=== PATIENT | female | born 1980 | race Asian ===

== ENCOUNTER 2023-11-22 08:04 | Outpatient (CLI) | payer OTHER, SELFPAY ==
--- NOTE | 2023-11-22 08:15 | US_ITS ---
Patient: HERMAN BARBOZA Facility:?[facility] Patient ID:?[id number] Site Patient ID:?[id number]. Site :?1980 Study:?US-OB Pelvis TV OB<14wks-11/22/2023 9:03:08 AM Ordering Physician:Garrison October Final Report: INDICATION: Ultrasound for dates and viability. Nine week 2 day gestation. Technique: First trimester OB ultrasound. Transvaginal grayscale and color, M-mode doppler images. FINDINGS: Examination shows a single intrauterine gestation. Right ovary measures 3.5 x 2.4 x 2.4 cm. Left ovary measures 2.3 x 0.9 x 1.9 cm. EARLY GESTATION MEASUREMENTS: Cookson-rump length 2.3 cm, AGA of 9 weeks, 0 days. Mean gestational sac 3.8 cm Yolk sac: Present Heart Rate: 165 bpm. 2.2 cm heterogeneous area adjacent to the gestational sac. This is isoechoic with some tiny fluid spaces. This could be an evolving subchorionic hemorrhage. IMPRESSION: 1. Single viable IUP. 2. Measurements are consistent with clinical dates. 3. Possible evolving subchorionic hemorrhage. Dictated by Jason Mendoza MD @ 11/22/2023 3:20:32 PM Signed by:?Jason Mendoza MD @11/22/2023 3:20:32 PM (Electronic Signature)
== END 2023-11-22 08:05 | disposition home or self-care (01) ==
LOC: US 08:05
PROVIDERS: Visit Provider Physician Assistant
DX: Z34.91 Encounter for supervision of normal pregnancy, unspecified, first trimester (principal); O20.9 Hemorrhage in early pregnancy, unspecified; Z3A.09 9 weeks gestation of pregnancy
CPT/HCPCS: 76817

== ENCOUNTER 2023-11-22 09:32 | Outpatient (CLI) | payer OTHER, SELFPAY ==
[2023-11-22 15:46] LABS: Chlamydia DNA Amplified* NOT DETECTED (No Detected); GC DNA Amplified* NOT DETECTED (No Detected)
== END 2023-11-22 09:33 | disposition home or self-care (01) ==
PROVIDERS: Visit Provider Physician Assistant
DX: Z34.91 Encounter for supervision of normal pregnancy, unspecified, first trimester (principal)
CPT/HCPCS: 82565; 82570; 84156; 84450; 84460; 84520; 86592; 86703; 86704; 86706; 86762; 86787; 86803; 86850; 86900; 86901; 87086; 87340; 87491; 87591

== ENCOUNTER 2023-11-25 10:48 | Outpatient (CLI) | payer OTHER, SELFPAY | END 2023-11-25 10:49 | disposition home or self-care (01) | LOC: NFLDREF 12-15 14:02 | PROVIDERS: Visit Provider Physician Assistant | DX: Z87.59 Personal history of other complications of pregnancy, childbirth and the puerperium (principal) | CPT/HCPCS: 82570; 84156 ==

== ENCOUNTER 2024-02-10 11:59 | Outpatient (CLI) | payer SELFPAY ==
--- NOTE | 2024-02-10 12:15 | CRLHL7_ITS ---
For Patients: As a result of the Century Cures Act, medical imaging exams and procedure reports are released immediately into your electronic medical record. You may view this report before your referring provider. If you have questions, please contact your health care provider. INDICATION: Evaluate anatomy. COMPARISON: 11/22/2023 TECHNIQUE: Real time andres scale imaging of the fetus was performed as well as color Doppler analysis of the umbilical vessels. FINDINGS: Sonographic imaging demonstrates a single living intrauterine gestation. Fetus demonstrates a regular cardiac rate of 142 beats per minute. Fetus has a transverse, head maternal right. The placenta lies right anterior without evidence of placenta previa. Edge of the placenta is located 5.7 cm from the internal cervical os. Amniotic fluid volume appears normal. Single deepest vertical pocket: 4.9 cm. The cervix is closed and measures 4.2 cm in length. The composite ultrasound gestational age is calculated at 20 weeks 5 days with an estimated sonographic due date of 06/24/2024. The estimated weight is 428 grams which lies at the 85th %. The following biometric measurements were obtained: Biparietal diameter: 4.7 cm/20 weeks 1 days 24th% Head circumference: 18.3 cm/20 weeks 5 days 41st% Abdominal circumference: 17.1 cm/22 weeks 0 days 83rd% Femur length: 3.5 cm/21 weeks 1 day 58th% The HC/AC ratio measures: 1.08 range (1.06-1.25) On anatomic survey, there is a normal appearance of the cerebral ventricles, cavum septi pellucidi, cisterna magna and cerebellum. The nose, lips, and facial profile appear normal. The cervical, thoracic and lumbar spine are well visualized and appear normal. There is a normal four-chamber heart view and the left and right ventricular outflow tracts appear normal. The diaphragm and stomach appear normal. The kidneys and bladder also appear normal. There is a normal three-vessel cord and there is a margin cord insertion site located 1.8 cm from the edge of the placenta. The four extremities appear normal. IMPRESSION: Concordance of clinical and sonographic dating. No intrinsic abnormalities noted on anatomic survey. Marginal placental cord insertion located 1.8 cm from the placental edge. Dictated by Toi Hernandez MD @ 02/11/2024 7:51:32 PM (Electronically Signed)
== END 2024-02-10 12:00 | disposition home or self-care (01) ==
LOC: US 12:00
PROVIDERS: Visit Provider Advanced Practice Midwife
DX: Z34.92 Encounter for supervision of normal pregnancy, unspecified, second trimester (principal); Z3A.20 20 weeks gestation of pregnancy
CPT/HCPCS: 76805

== ENCOUNTER 2024-04-06 08:35 | Outpatient (CLI) | payer SELFPAY ==
--- OUTSIDE RECORDS SUMMARY | 2024-04-12 05:47 | XMS_ITS | Referral Summary ---
Author Organization [place] Address [address] [place] [address] Care Team Providers Care Ct Scan Technician Name Role Phone No Ref-Primary, Physician Primary Care Provider Allergies No known active allergies Medications Medication Sig Dispensed Refills Start Date End Date Status MV-Min-Fe Fum-FA-DHA ( 1 PO) Take 1 tablet by mouth daily Active acetaminophen (TYLENOL) 325 MG tabletIndications: Preeclampsia, severe, third trimester,S/P section Take 3 tablets (975 mg) by mouth every 6 hours 08/24/2021 Active ibuprofen (ADVIL/MOTRIN) 800 MG tabletIndications: Preeclampsia, severe, third trimester,S/P section Take 1 tablet (800 mg) by mouth every 6 hours as needed for moderate pain 60 tablet 1 08/24/2021 Active NIFEdipine ER OSMOTIC (ADALAT CC) 60 MG 24 hr tabletIndications: Preeclampsia, severe, third trimester,S/P section Take 1 tablet (60 mg) by mouth daily 30 tablet 1 08/25/2021 Active senna-docusate (SENOKOT-S/PERICOL ARTUR) 8.6-50 MG tabletIndications: Preeclampsia, severe, third trimester,S/P section Take 1 tablet by mouth 2 times daily as needed for constipation 15 tablet 08/24/2021 Active acetaminophen (TYLENOL) 325 MG tabletIndications: S/P section Take 1-2 tablets (325-650 mg) by mouth every 6 hours as needed for mild pain or fever 60 tablet 08/26/2021 Active Active Problems Problem Noted Date Diagnosed Date S/P section 08/21/2021 Social History Tobacco Use Types Packs/Day Years Used Date Smoking Tobacco: Never Smokeless Tobacco: Never Alcohol Use Standard Drinks/Week Comments Not Currently 0 (1 standard drink = 0.6 oz pur e alcohol) Conway Depression Scale Answer Date Recorded Conway Depression Score 8 08/24/2021 Last EPDS Self Harm Result Not on file 08/24 Adolescent Education Answer Date Record ed Getting School Help Needed Not on file 04/23 Sex and Gender Information Value Date Recorded Sex Assigned at Not on file Gender Identity Not on file Sexual Orientation Not on file Last Filed Vital Signs Vital Sign Reading Time Taken Comments Blood Pressure 148/91 08/26/2021 9:00 AM ELECTRICAL TRANSMISSION ENGINEER Pulse 100 08/26/2021 5:49 AM ELECTRICAL TRANSMISSION ENGINEER Temperature 37.2 ??C (99 ??F) 08/26/2021 1:22 AM ELECTRICAL TRANSMISSION ENGINEER Respiratory Rate 18 08/26/2021 5:49 AM ELECTRICAL TRANSMISSION ENGINEER Oxygen Saturation 98% 08/22/2021 3:11 PM ELECTRICAL TRANSMISSION ENGINEER Inhaled Oxygen Concentration - - Weight 90.3 kg (199 lb) 08/24/2021 6:40 AM ELECTRICAL TRANSMISSION ENGINEER Height - - Body Mass Index - - Plan of Treatment Not on file Procedures Procedure Name Priority Date/Time Associated Diagnosis Comments COMPREHENSIVE METABOLIC PANEL Routine 08/23/2021 6:09 AM ELECTRICAL TRANSMISSION ENGINEER HIV 1&2 ANTIBODY (EXTERNAL RESULT) Routine 01/30/2021 7:01 PM CDT from Last 3 Months or Most Recently Relevant to Health Maintenance Results * (ABNORMAL) Comprehensive metabolic panel (08/23/2021 6:09 AM ELECTRICAL TRANSMISSION ENGINEER) Sodium 140 133 - 144 mmol/L 08/23/2021 6:59 AM [facility] Potassium 4.6 3.4 - 5.3 mmol/L 08/23/2021 6:59 AM [facility] Chloride 111(H) 94 - 109 mmol/L 08/23/2021 6:59 AM [facility] Carbon Dioxide (CO2) 25 20 - 32 mmol/L 08/23/2021 6:59 AM [facility] Anion Gap 4 3 - 14 mmol/L 08/23/2021 6:59 AM [facility] Urea Nitrogen 12 7 - 30 mg/dL 08/23/2021 6:59 AM [facility] Creatinine 0.77 0.52 - 1.04 mg/dL 08/23/2021 6:59 AM [facility] Calcium 8.3(L) 8.5 - 10.1 mg/dL 08/23/2021 6:59 AM [facility] Glucose 84 70 - 99 mg/dL 08/23/2021 6:59 AM [facility] Alkaline Phosphatase 88 40 - 150 U/L 08/23/2021 6:59 AM [facility] AST 21 0 - 45 U/L 08/23/2021 6:59 AM [facility]SMISS[facility] ALT 15 0 - 50 U/L 08/23/2021 6:59 AM [facility] Protein Total 6.0(L) 6.8 - 8.8 g/dL 08/23/2021 6:59 AM [facility] Albumin 2.2(L) 3.4 - 5.0 g/dL 08/23/2021 6:59 AM [facility] Bilirubin Total 0.2 0.2 - 1.3 mg/dL 08/23/2021 6:59 AM [facility]SM[facility] GFR Estimate >90 >60 mL/min/1.7 3m2 08/23/2021 6:59 AM [facility] Comment:Effective July 022020 eGFRcr in adults is calculated using the 2020 CKD-EPI creatinine equation which includes age and gender (Chastity et al., NE, DOI: 10.1056/GKQKih4562169) Blood STRUCTURE OF RIGHT HAND / Unknown Venipuncture / Unknown 08/23/2021 6:09 AM ELECTRICAL TRANSMISSION ENGINEER 08/23/2021 6:25 AM ELECTRICAL TRANSMISSION ENGINEER Alexandria Orr MD LAB - BLOOD ORDER [facility] [address] [facility] Lab (1st floor, no room number) [place] [address], [facility] [phone] * HIV-1 Antibody (External Result) (01/30/2021 7:01 PM CDT) [facility] HIV 1&2 Antibody (External) Negative Nonreactive [facility] 01/30/2021 7:01 PM CDT Adore Nagy MD LAB - HIM GRILL ATTENDANT AL RESULT [facility] [address] [place], [place] [address] [phone] from Last 3 Months or Most Recently Relevant to Health Maintenance Advance Directives For more information, please contact: [phone] * Full Code (Latest Code Status on File) Date Activated Date Inactivated Comments 08/24/2021 8:04 AM 08/26/2021 12:36 PM All basic a nd advanced life-sustaining interventions are performed as appropriate Question Answer Comments Code status determined by: Discussion with leann nt/ legal decision maker Care Teams Ct Scan Technician Relationship Specialty Start Date End Date No Ref-Primary, Physician PCP - General 08/21/21
--- OUTSIDE RECORDS SUMMARY | 2024-04-12 05:47 | XMS_ITS | Clinical Summary ---
[facility] Organization [facility] Address [address] [address] Care Team Providers Care Livery Car Driver Name Role Phone Needs Pcp, Assignment Primary Care Provider [phone] Source Comments You are receiving this document as you are listed as the primary care provider,follow-up provider, or the patient has been referred to you for consultation.This is in compliance with the Medicare and[facility] EHR Incentive Program,which states Providers who transition their patient to another setting of careor provider of care or refers their patient to another provider of care shouldprovide summary care record for each transition of care or referral. [facility] Allergies No known active allergies Medications Medication Sig Dispensed Refills Start Date End Date Status sertraline (ZOLOFT) 50 MG tabletIndications:P ostpartum depression Take 1/2 tablet (25 mg) daily for the first week then increase to a full tablet (50 mg) daily. 90 Tablet 3 12/11/2021 Active Additional Information Patient not taking.Reported on 10/21/2022 cyclobenzaprine (FLEXERIL) 10 MG tabletIndications:A cute midline low back pain without sciatica,Neck pain Take 0.5-1 Tablets (5-10 mg) by mouth three times a day as needed for Muscle Spasms. 20 Tablet 10/21/2022 Active Active Problems Problem Noted Date Diagnosed Date Lumbar pain 11/04/2022 Neck pain 11/04/2022 depression 12/26/2021 Class 1 obesity due to exces s calories with body mass index (BMI) of 32.0 to 32.9 in adult 10/08/2021 S/P section 09/17/2021 Pre-eclampsia in third trimester 08/18/2021 Breech presentation, no version 08/18/2021 Excessive weight gain affecting 2021 Abnormal cervical Papanicolaou smear 10/24/2018 Overview (10/24/2018): 2017: ASCUS/HPV neg 2018: NIL/HPV neg. Not due until 2020. 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 The presence of HbE causes few abnormalities other than microcytosis, target cells, and hypochromia when present in a heterozygous or homozygous state. Plan to check ferritin before recommending iron if anemic. Advanced maternal age, primi , antepartum 01/30/2021 10/08/2021 Antepartum multigravida of a dvanced maternal age 0701/29/2021 01/30/2021 Immunizations Name Administration Dates Next Due Flu Vac Preserv Free (3+yrs) 05/15/2009 IPV (Polio) 12/14/1993,02/24/1993,09/17/1992 MMR 10/24/1992 Td (7+ yrs) 05/13/2004,12/14/1993,02/14/1993 ,10/24/1992 Tdap 07/10/2010 Family History Medical History Relation Name Comments Cancer Father Diabetes Mother Relation Name Status Comments Father Mother Alive Brother Alive Maternal Grandfather Maternal Grandmother Paternal Grandfather Paternal Grandmother Sister Alive Social History Tobacco Use Types Packs/Day Years Used Date Smoking Tobacco: Never Smokeless Tobacco: Never Alcohol Use Standard Drinks/Week Comments Not Currently 0 (1 standard drink = 0.6 oz pur e alcohol) Socially Depression Answer Date Recor ded Last EPDS Total Score 5 12/25/2021 Last EPDS Self Harm Result 0-->never 12/25 Sex and Gender Information Value Date Recorded Sex Assigned at Not on file Gender Identity Not on file Sexual Orientation Not on file Last Filed Vital Signs Vital Sign Reading Time Taken Comments Blood Pressure 119/80 10/21/2022 1:46 PM CDT Pulse 94 10/21/2022 1:46 PM CDT Temperature - - Respiratory Rate - - Oxygen Saturation - - Inhaled Oxygen Concentration - - Weight 85.7 kg (189 lb) 10/21/2022 1:46 PM CDT Height 158 cm (5' 2.21) 10/24/2018 8:33 AM CDT Body Mass Index 34.34 10/24/2018 8:33 AM CDT Plan of Treatment Health Maintenance Due Date Last Done Comments Cervical Cancer Screening Due 1982 MTM Covered 1982 Mammogram 1982 HepB (1) 2001 DTaP/Tdap/Td (5 - Tdap) 07/10/2020 07/10/20 10, 05/13/2004, 12/14/1993, Additional history exists Adult Preventive Visit 10/24/2020 10/24/2018 COVID-19 Vaccine ( season) 2024 Influenza (#1) 2024 05/15/2009 Zoster/Shingles (1 of 2) 01/14/2032 IPV (Polio) Completed 12/14/1993, 01/30, 09/17/1992 HIV Screening (Preventive Services) Completed 01/30/2021 Hep C Screening (Preventive Services) Completed 01/30/2021 HPV Vaccine Aged Out No longer eligi ble based on patient's age to complete this topic HepA Aged Out No longer eligi ble based on patient's age to complete this topic Hib Aged Out No longer eligi ble based on patient's age to complete this topic MCV4 Aged Out No longer eligi ble based on patient's age to complete this topic Pneumococcal Aged Out No longer eligi ble based on patient's age to complete this topic Procedures Procedure Name Priority Date/Time Associated Diagnosis Comments HIV 1/2 AG/AB 4TH GEN Routine 01/30/2021 11:42 AM CDT Advanced maternal age, primigravida, antepartum Screening examination for venereal disease HEPATITIS C ANTIBODY, WITH REFLEX Routine 01/30/2021 11:42 AM CDT Advanced maternal age, primigravida, antepartum Special screening examination for viral disease from Last 3 Months or Most Recently Relevant to Health Maintenance Results * HIV 1/2 Ag/Ab 4th Generation (01/30/2021 11:42 AM CDT) HIV 1/2 Antigen/Antib raphael (4th generation) Negative (Non Reactive) Negative (Non Reactive) 01/30/2021 4:28 PM CDT [facility] Comment:HIV-1 p24 Antigen an d HIV-1/HIV-2 Antibody not detected Blood Venipuncture / Unknown 01/30/2021 11:42 AM CDT 01/30/2021 11:42 AM CDT Priti Arzola APRN, CNM LAB_1 Performing Organization Address [facility] de Phone Number [facility] [address] * HEPATITIS C ANTIBODY, WITH REFLEX (01/30/2021 11:42 AM CDT) Hepatitis C Antibody Negative (Non Reactive) Negative (Non Reactive) 01/30/2021 4:28 PM CDT [facility] Comment:Antibodies to HCV no t detected. Does not exclude the possiblity of exposure to HCV. Blood Venipuncture / Unknown 01/30/2021 11:42 AM CDT 01/30/2021 11:42 AM CDT Priti Arzola APRN, CNM LAB_1 Performing Organization Address [facility] Co de Phone Number [facility] [address] from Last 3 Months or Most Recently Relevant to Health Maintenance Care Teams Livery Car Driver Relationship Specialty Start Date End Date Needs Pcp, [place] [address] PCP - General 07/27/21
--- OUTSIDE RECORDS SUMMARY | 2024-04-12 05:47 | XMS_ITS | Encounter Summary ---
Author Organization [facility] Address [address] [place] [address] Care Team Providers Care Wheel Alignment Technician Name Role Phone No Ref-Primary, Physician Primary Care Provider Encounter Details Date Type Department Care Team (Late st Contact Info) Description 08/18/[address] [facility] [address] [place] [id number] Adore Nagy MD [address] [place] [id number] Pre-operative laboratory examination (Primary Dx) Social History Tobacco Use Types Packs/Day Years Used Date Smoking Tobacco: Never Smokeless Tobacco: Never Alcohol Use Standard Drinks/Week Comments Not Currently 0 (1 standard drink = 0.6 oz pur e alcohol) Comments Yes Sex and Gender Information Value Date Recorded Sex Assigned at Not on file Gender Identity Not on file Sexual Orientation Not on file COVID-19 Exposure Response Date Recorded In the last month, have you been in contact with someone who was confirmed or suspected to have Coronavirus / COVID-19? No / Unsure 08/20/2021 9:02 AM PLASTIC SURGERY SPECIALIST documented as of this encounter Plan of Treatment Not on file documented as of this encounter Results * Treponema Abs w Reflex to RPR and Titer (08/20/2021 9:19 AM PLASTIC SURGERY SPECIALIST) Treponema Antibody Total Nonreactive Nonreactive 08/20/2021 2:36 PM PLASTIC SURGERY SPECIALIST SPECIALTY CORE/PROT/EN DO Blood STRUCTURE OF RIGHT UPPER LIMB / Unknown Venipuncture / Unknown 08/20/2021 9:19 AM PLASTIC SURGERY SPECIALIST 08/20/2021 9:20 AM PLASTIC SURGERY SPECIALIST Adore Nagy MD LAB - BLOOD [facility] SPECIAL[facility] CORE/PROT/ENDO [facility] Specialty Core/Prot/Endo [address] [facility] [address] [facility], Room [address] [phone] * Hemoglobin (08/20/2021 9:19 AM PLASTIC SURGERY SPECIALIST) Hemoglobin 12.4 11.7 - 15.7 g/dL 08/20/2021 9:30 AM PLASTIC SURGERY SPECIALIST LABORATORY Blood STRUCTURE OF RIGHT UPPER LIMB / Unknown Venipuncture / Unknown 08/20/2021 9:19 AM PLASTIC SURGERY SPECIALIST 08/20/2021 9:22 AM PLASTIC SURGERY SPECIALIST Adore Nagy MD LAB - BLOOD [facility] Lab [address] Lab (1st floor, no room number) [place] [address], [facility] [phone] documented in this encounter Visit Diagnoses Diagnosis Pre-operative laboratory examination- Primary Pre-procedural laboratory examination documented in this encounter Care Teams Wheel Alignment Technician Relationship Specialty Start Date End Date No Ref-Primary, Physician PCP - General 08/21/21 documented as of this encounter
--- OUTSIDE RECORDS SUMMARY | 2024-04-12 05:47 | XMS_ITS | Clinical Summary ---
Author Organization [facility] Address [address] [place] [address] Care Team Providers Care Centerless Grinder Set Up Operator Name Role Phone No Ref-Primary, Physician Primary [...] drink = 0.6 oz pur e alcohol) [place] Depression Scale Answer Date Recorded [place] Depression Score 8 08/24/2021 Last EPDS Self [...] Comments Blood Pressure 148/91 08/26/2021 9:00 AM DOORPERSON OR LUGGAGE PORTER Pulse 100 08/26/2021 5:49 AM DOORPERSON OR LUGGAGE PORTER Temperature 37.2 ??C (99 ??F) 08/26/2021 1:22 AM DOORPERSON OR LUGGAGE PORTER Respiratory Rate 18 08/26/2021 5:49 AM DOORPERSON OR LUGGAGE PORTER Oxygen Saturation 98% 08/22/2021 3:11 PM DOORPERSON OR LUGGAGE PORTER Inhaled Oxygen Concentration - - Weight 90.3 kg (199 lb) 08/24/2021 6:40 AM DOORPERSON OR LUGGAGE PORTER Height - - Body Mass Index - - Plan of Treatment Health Maintenance Due Date Last Done Comments ADVANCE CARE PLANNING 1982 ANNUAL REVIEW OF HM ORDERS 1982 MAMMO SCREENING 1982 HEPATITIS C SCREENING 01/14/2000 HEPATITIS B IMMUNIZATION (1 of 3 - 19+ 3-dose series) 2001 PAP 2003 YEARLY PREVENTIVE VISIT 10/25/2019 10/24/2018 DTAP/TDAP/TD IMMUNIZATION (2 - Td or Tdap) 07/10/2020 07/10/2010 LIPID 2022 PHQ-2 (once per calendar year) 2023 COVID-19 Vaccine (1 - 2022-2 4 season) 2024 INFLUENZA VACCINE (#1) 2024 05/15/2009 GLUCOSE 08/23/2024 08/23/2021 HIV SCREENING Completed 01/30/2021 HPV IMMUNIZATION Aged Out No longer e ligible based on patient's age to complete this topic MENINGITIS IMMUNIZATION Aged Out No l onger eligible based on patient's age to complete this topic Pneumococcal Vaccine: Pediat rics (0 to 5 Years) and At-Risk Patients (6 to 64 Years) Aged Out No longer eligi ble based on patient's age to complete this topic RSV MONOCLONAL ANTIBODY Aged Out No l onger eligible based on patient's age to complete this topic Procedures Procedure Name Priority Date/Time Associated Diagnosis Comments COMPREHENSIVE METABOLIC PANEL Routine 08/23/2021 6:09 AM DOORPERSON OR LUGGAGE PORTER HIV 1&2 ANTIBODY (EXTERNAL RESULT) Routine 01/30/2021 7:01 PM CDT from Last 3 Months or Most Recently Relevant to Health Maintenance Results * (ABNORMAL) Comprehensive metabolic panel (08/23/2021 6:09 AM DOORPERSON OR LUGGAGE PORTER) Sodium 140 133 - 144 mmol/L 08/23/2021 6:59 AM [facility] Potassium 4.6 3.4 - 5.3 mmol/L 08/23/2021 6:59 AM [facility] Chloride 111(H) 94 - 109 mmol/L 08/23/2021 6:59 AM [facility] Carbon Dioxide (CO2) 25 20 - 32 mmol/L 08/23/2021 6:59 AM [facility] Anion Gap 4 3 - 14 mmol/L 08/23/2021 6:59 AM [facility] Urea Nitrogen 12 7 - 30 mg/dL 08/23/2021 6:59 AM [facility] Creatinine 0.77 0.52 - 1.04 mg/dL 08/23/2021 6:59 AM [facility] Calcium 8.3(L) 8.5 - 10.1 mg/dL 08/23/2021 6:59 AM [facility] Glucose 84 70 - 99 mg/dL 08/23/2021 6:59 AM [facility] Alkaline Phosphatase 88 40 - 150 U/L 08/23/2021 6:59 AM [facility] AST 21 0 - 45 U/L 08/23/2021 6:59 AM [facility] ALT 15 0 - 50 U/L 08/23/2021 6:59 AM [facility] Protein Total 6.0(L) 6.8 - 8.8 g/dL 08/23/2021 6:59 AM [facility] Albumin 2.2(L) 3.4 - 5.0 g/dL 08/23/2021 6:59 AM [facility] Bilirubin Total 0.2 0.2 - 1.3 mg/dL 08/23/2021 6:59 AM [facility] GFR Estimate >90 >60 mL/min/1.7 3m2 08/23/2021 6:59 AM [facility] OR [facility] Comment:Effective July 022020 eGFRcr in adults is calculated using the 2020 CKD-EPI creatinine equation which includes age and gender (Chastity et al., NEJ, DOI: 10.1056/UMDRph9842429) Blood STRUCTURE OF RIGHT HAND / Unknown Venipuncture / Unknown 08/23/2021 6:09 AM DOORPERSON OR LUGGAGE PORTER 08/23/2021 6:25 AM DOORPERSON OR LUGGAGE PORTER Alexandria Orr MD LAB - BLOOD [facility] Lab [address] Lab (1st floor, no room number) [place] [address], [facility] [phone] * HIV-1 Antibody (External Result) (01/30/2021 7:01 PM CDT) HIV 1&2 Antibody (External) Negative Nonreactive [facility] 01/30/2021 7:01 PM CDT Adore Nagy MD LAB - HIM LEAF TIER AL RESULT [facility] [address] [place], [place] [address] [phone] from Last 3 Months or Most Recently Relevant to Health Maintenance Advance Directives For more information, please contact: [phone] * Full Code (Latest Code Status on File) Date Activated Date Inactivated Comments 08/24/2021 8:04 AM 08/26/2021 12:36 PM All basic a nd advanced life-sustaining interventions are performed as appropriate Question Answer Comments Code status determined by: Discussion with patie nt/ legal decision maker Care Teams Centerless Grinder Set Up Operator Relationship Specialty Start Date End Date No Ref-Primary, Physician PCP - General 08/21/21
== END 2024-04-06 08:36 | disposition home or self-care (01) ==
LOC: NFLDREF 04-12 05:45
PROVIDERS: Visit Provider Advanced Practice Midwife
DX: Z34.93 Encounter for supervision of normal pregnancy, unspecified, third trimester (principal)
CPT/HCPCS: 86592

== ENCOUNTER 2024-04-16 02:54 | Outpatient (CLI) | payer OTHER, SELFPAY ==
--- OUTSIDE RECORDS SUMMARY | 2024-04-16 02:57 | XMS_ITS | Referral Summary ---
Author Organization [facility] Address [address] [place] [address] Care Team Providers Care Audio Visual Design Engineer Name Role Phone No Ref-Primary, Physician Primary [...] drink = 0.6 oz pur e alcohol) [place] Depression Scale Answer Date Recorded [place] Depression Score 8 08/24/2021 Last EPDS Self [...] Comments Blood Pressure 148/91 08/26/2021 9:00 AM QUILLER TENDER Pulse 100 08/26/2021 5:49 AM QUILLER TENDER Temperature 37.2 ??C (99 ??F) 08/26/2021 1:22 AM QUILLER TENDER Respiratory Rate 18 08/26/2021 5:49 AM QUILLER TENDER Oxygen Saturation 98% 08/22/2021 3:11 PM QUILLER TENDER Inhaled Oxygen Concentration - - Weight 90.3 kg (199 lb) 08/24/2021 6:40 AM QUILLER TENDER Height - - Body Mass Index - - Plan of Treatment Not on file Procedures Procedure Name Priority Date/Time Associated Diagnosis Comments COMPREHENSIVE METABOLIC PANEL Routine 08/23/2021 6:09 AM QUILLER TENDER HIV 1&2 ANTIBODY (EXTERNAL RESULT) Routine 01/30/2021 7:01 PM CDT from Last 3 Months or Most Recently Relevant to Health Maintenance Results * (ABNORMAL) Comprehensive metabolic panel (08/23/2021 6:09 AM QUILLER TENDER) Sodium 140 133 - 144 mmol/L 08/23/2021 6:59 AM [facility] Potassium 4.6 3.4 - 5.3 mmol/L 08/23/2021 6:59 AM [facility] Chloride 111(H) 94 - 109 mmol/L 08/23/2021 6:59 AM [facility] Carbon Dioxide (CO2) 25 20 - 32 mmol/L 08/23/2021 6:59 AM [facility] Anion Gap 4 3 - 14 mmol/L 08/23/2021 6:59 AM [facility] Urea Nitrogen 12 7 - 30 mg/dL 08/23/2021 6:59 AM [facility] Creatinine 0.77 0.52 - 1.04 mg/dL 08/23/2021 6:59 AM [facility] Calcium 8.3(L) 8.5 - 10.1 mg/dL 08/23/2021 6:59 AM [facility] Glucose 84 70 - 99 mg/dL 08/23/2021 6:59 AM [facility] Alkaline Phosphatase 88 40 - 150 U/L 08/23/2021 6:59 AM [facility] AST 21 0 - 45 U/L 08/23/2021 6:59 AM [facility] ALT 15 0 - 50 U/L 08/23/2021 6:59 AM [facility] Protein Total 6.0(L) 6.8 - 8.8 g/dL 08/23/2021 6:59 AM [facility] Albumin 2.2(L) 3.4 - 5.0 g/dL 08/23/2021 6:59 AM [facility] Bilirubin Total 0.2 0.2 - 1.3 mg/dL 08/23/2021 6:59 AM [facility] GFR Estimate >90 >60 mL/min/1.7 3m2 08/23/2021 6:59 AM [facility] Comment:Effective July 022020 eGFRcr in adults is calculated using the 2020 CKD-EPI creatinine equation which includes age and gender (Chastity et al., NE, DOI: 10.1056/EUUBsj2235727) Blood STRUCTURE OF RIGHT HAND / Unknown Venipuncture / Unknown 08/23/2021 6:09 AM QUILLER TENDER 08/23/2021 6:25 AM QUILLER TENDER Alexandria Orr MD LAB - BLOOD ORDER [facility] Acute Care Lab [address] Lab (1st floor, no room number) [place] [address], [facility] [phone] * HIV-1 Antibody (External Result) (01/30/2021 7:01 PM CDT) [facility] HIV 1&2 Antibody (External) Negative Nonreactive [facility] 01/30/2021 7:01 PM CDT Adore Nagy MD LAB - HIM POLITICAL CONSULTANT AL RESULT [facility] [address] [employer] [place], [place] [address] [phone] from Last 3 Months or Most Recently Relevant to Health Maintenance Advance Directives For more information, please contact: [phone] * Full Code (Latest Code Status on File) Date Activated Date Inactivated Comments 08/24/2021 8:04 AM 08/26/2021 12:36 PM All basic a nd advanced life-sustaining interventions are performed as appropriate Question Answer Comments Code status determined by: Discussion with leann nt/ legal decision maker Care Teams Audio Visual Design Engineer Relationship Specialty Start Date End Date No Ref-Primary, Physician PCP - General 08/21/21
--- OUTSIDE RECORDS SUMMARY | 2024-04-16 02:57 | XMS_ITS | Clinical Summary ---
Author Organization [facility] Address [address] [place] [address] Care Team Providers Care Dust Collector Name Role Phone No Ref-Primary, Physician Primary [...] drink = 0.6 oz pur e alcohol) [place] Depression Scale Answer Date Recorded [place] Depression Score 8 08/24/2021 Last EPDS Self [...] Comments Blood Pressure 148/91 08/26/2021 9:00 AM MINK FARMER Pulse 100 08/26/2021 5:49 AM MINK FARMER Temperature 37.2 ??C (99 ??F) 08/26/2021 1:22 AM MINK FARMER Respiratory Rate 18 08/26/2021 5:49 AM MINK FARMER Oxygen Saturation 98% 08/22/2021 3:11 PM MINK FARMER Inhaled Oxygen Concentration - - Weight 90.3 kg (199 lb) 08/24/2021 6:40 AM MINK FARMER Height - - Body Mass Index - [...] COMPREHENSIVE METABOLIC PANEL Routine 08/23/2021 6:09 AM MINK FARMER HIV 1&2 ANTIBODY (EXTERNAL RESULT) Routine 01/30/2021 7:01 PM CDT from Last 3 Months or Most Recently Relevant to Health Maintenance Results * (ABNORMAL) Comprehensive metabolic panel (08/23/2021 6:09 AM MINK FARMER) Sodium 140 133 - 144 mmol/L 08/23/2021 6:59 AM [facility] Potassium 4.6 3.4 - 5.3 mmol/L 08/23/2021 6:59 AM [facility] Chloride 111(H) 94 - 109 mmol/L 08/23/2021 6:59 AM [facility] Carbon Dioxide (CO2) 25 20 - 32 mmol/L 08/23/2021 6:59 AM [facility] Anion Gap 4 3 - 14 mmol/L 08/23/2021 6:59 AM [facility] Urea Nitrogen 12 7 - 30 mg/dL 08/23/2021 6:59 AM [facility] Creatinine 0.77 0.52 - 1.04 mg/dL 08/23/2021 6:59 AM [facility] Calcium 8.3(L) 8.5 - 10.1 mg/dL 08/23/2021 6:59 AM [facility] Glucose 84 70 - 99 mg/dL 08/23/2021 6:59 AM [facility] Alkaline Phosphatase 88 40 - 150 U/L 08/23/2021 6:59 AM [facility] AST 21 0 - 45 U/L 08/23/2021 6:59 AM [facility] ALT 15 0 - 50 U/L 08/23/2021 6:59 AM [facility] Protein Total 6.0(L) 6.8 - 8.8 g/dL 08/23/2021 6:59 AM [facility] Albumin 2.2(L) 3.4 - 5.0 g/dL 08/23/2021 6:59 AM [facility] Bilirubin Total 0.2 0.2 - 1.3 mg/dL 08/23/2021 6:59 AM [facility] GFR Estimate >90 >60 mL/min/1.7 3m2 08/23/2021 6:59 AM [facility] Comment:Effective July 022020 eGFRcr in adults is calculated using the 2020 CKD-EPI creatinine equation which includes age and gender (Chastity et al., NEJ, DOI: 10.1056/XFIMez9505218) Blood STRUCTURE OF RIGHT HAND / Unknown Venipuncture / Unknown 08/23/2021 6:09 AM MINK FARMER 08/23/2021 6:25 AM MINK FARMER Alexandria Orr MD LAB - BLOOD ORDER [facility] Acute Care Lab [address] Lab (1st floor, no room number) [place] [address], [facility] [phone] * HIV-1 Antibody (External Result) (01/30/2021 7:01 PM CDT) HIV 1&2 Antibody (External) Negative Nonreactive [facility] 01/30/2021 7:01 PM CDT Adore Nagy MD LAB - HIM WATCH REPAIR PERSON AL RESULT [facility] [address] [place], [place] [address] [phone] from Last 3 Months or Most Recently Relevant to Health Maintenance Advance Directives For more information, please contact: [phone] * Full Code (Latest Code Status on File) Date Activated Date Inactivated Comments 08/24/2021 8:04 AM 08/26/2021 12:36 PM All basic a nd advanced life-sustaining interventions are performed as appropriate Question Answer Comments Code status determined by: Discussion with patie nt/ legal decision maker Care Teams Dust Collector Relationship Specialty Start Date End Date No Ref-Primary, Physician PCP - General 08/21/21
--- OUTSIDE RECORDS SUMMARY | 2024-04-16 02:57 | XMS_ITS | Clinical Summary ---
[facility] Address [address], [place] [address] Care Team Providers Care Program Instructor Name Role Phone Needs Pcp, Assignment Primary Care Provider [phone] Source Comments You are receiving this document as you are listed as the primary care provider,follow-up provider, or the patient has been referred to you for consultation.This is in compliance with the Medicare and[facility] EHR Incentive Program,which states Providers who transition their patient to another setting of careor provider of care or refers their patient to another provider of care shouldprovide summary care record for each transition of care or referral. [facility] Allergies No known active allergies Medications Medication [...] Negative (Non Reactive) 01/30/2021 4:28 PM CDT [facility] Comment:HIV-1 p24 Antigen an d HIV-1/HIV-2 Antibody not detected Blood Venipuncture / Unknown 01/30/2021 11:42 AM CDT 01/30/2021 11:42 AM CDT Priti Arzola APRN, CNM LAB_1 Performing Organization Address [facility] [address]/[facility] de Phone Number [facility] [employer] [address] * HEPATITIS C ANTIBODY, WITH REFLEX (01/30/2021 11:42 AM CDT) Hepatitis C Antibody Negative (Non Reactive) Negative (Non Reactive) 01/30/2021 4:28 PM CDT [facility] Comment:Antibodies to HCV no t detected. Does not exclude the possiblity of exposure to HCV. Blood Venipuncture / Unknown 01/30/2021 11:42 AM CDT 01/30/2021 11:42 AM CDT Priti Arzola APRN, CNM LAB_1 Performing Organization Address City/[facility] [address]/[facility] Co de Phone Number [facility] [employer] [address] from Last 3 Months or Most Recently Relevant to Health Maintenance Care Teams Program Instructor Relationship Specialty Start Date End Date Needs Pcp, [place] [address] PCP - General 07/27/21
--- OUTSIDE RECORDS SUMMARY | 2024-04-16 02:58 | XMS_ITS | Encounter Summary ---
Author Organization [facility] Address [address] [place] [address] Care Team Providers Care Rn Outpatient Surgery Name Role Phone No Ref-Primary, Physician Primary Care Provider Encounter Details Date Type Department Care Team (Late st Contact Info) Description 08/18/2021 Orders Only [facility] [address] [place] [id number] Adore Nagy MD [address] [place] [address] Pre-operative laboratory examination (Primary Dx) Social [...] COVID-19? No / Unsure 08/20/2021 9:02 AM ASSOCIATE SOFTWARE DEVELOPMENT ENGINEER documented as of this encounter Plan of Treatment Not on file documented as of this encounter Results * Treponema Abs w Reflex to RPR and Titer (08/20/2021 9:19 AM ASSOCIATE SOFTWARE DEVELOPMENT ENGINEER) Treponema Antibody Total Nonreactive Nonreactive 08/20/2021 2:36 PM ASSOCIATE SOFTWARE DEVELOPMENT ENGINEER SPECIALTY CORE/PROT/EN DO Blood STRUCTURE OF RIGHT UPPER LIMB / Unknown Venipuncture / Unknown 08/20/2021 9:19 AM ASSOCIATE SOFTWARE DEVELOPMENT ENGINEER 08/20/2021 9:20 AM ASSOCIATE SOFTWARE DEVELOPMENT ENGINEER Adore Nagy MD LAB - BLOOD [facility] SPECIALTY CORE/PROT/ENDO [facility] Specialty Core/Prot/Endo [address] [facility] [address] [facility], Room [address] [phone] * Hemoglobin (08/20/2021 9:19 AM ASSOCIATE SOFTWARE DEVELOPMENT ENGINEER) Hemoglobin 12.4 11.7 - 15.7 g/dL 08/20/2021 9:30 AM ASSOCIATE SOFTWARE DEVELOPMENT ENGINEER LABORATORY Blood STRUCTURE OF RIGHT UPPER LIMB / Unknown Venipuncture / Unknown 08/20/2021 9:19 AM ASSOCIATE SOFTWARE DEVELOPMENT ENGINEER 08/20/2021 9:22 AM ASSOCIATE SOFTWARE DEVELOPMENT ENGINEER Adore Nagy MD LAB - BLOOD [facility] Acute Care Lab [address] Lab (1st floor, no room number) [place] [address], [facility] [phone] documented in this encounter Visit Diagnoses Diagnosis Pre-operative laboratory examination- Primary Pre-procedural laboratory examination documented in this encounter Care Teams Rn Outpatient Surgery Relationship Specialty Start Date End Date No Ref-Primary, Physician PCP - General 08/21/21 documented as of this encounter
[2024-04-16 03:15] VITALS: TEMP 36.6
[2024-04-16 03:17] VITALS: BP 112/70; PULSE 83
[2024-04-16 03:18] VITALS: PULSE 81; O2SAT 98
[2024-04-16 03:29] LABS: Appearance Urine Slightly Cloudy (Clear); Bilirubin Urine Negative (Negative); Blood Urine Trace-intact (Negative); Color Urine Yellow (Yellow); Glucose Urine Negative (Negative); Ketones Urine 3+ (Negative); Leukocyte Esterase Urine Negative (Negative); Nitrite Urine Negative (Negative); Protein Urine Trace (Negative); Specific Gravity Urine >= 1.030 (1.000-1.030); Urobilinogen Urine 0.2 (0.2-1.0)
[2024-04-16 03:46] LABS: Amorphous Sediment Urine Moderate; Bacteria Urine Few; RBC Urine 0-2 (0-2); Squamous Epithelial Cell Urine Few (None-Few); WBC Urine 0-2 (0-5)
--- NOTE | 2024-04-16 04:12 | PC.OBNST ---
NST Note NST Note Start: 04/16/24 03:00 Freq: ONCE Status: Active Protocol: Document 04/16/24 04:06 HAFSAKAYLEEN (Rec: 04/16/24 04:09 DREDory [id number]) NST Note 2 Para (# of births) 1 EDC 06/24/24 Gestational Age In Weeks & Days 30 Weeks & 1 Days High Risk Factors High Blood Pressure - Gestational,Diabetes - Gestational Diet Controlled, Advanced Maternal Age Patient Presented with Complaint(s) of Pain If Pain, describe location low back - right flank Reactive Yes Appropriate for Gestational Age Yes SOPHIE Lee RNC Date 04/16/24 Reactive Yes Appropriate for Gestational Age Yes SOPHIE Ochoa RN Date 04/16/24 OB NST charge Yes Complete NST Note via Write Note Yes The provider's electronic signature indicates the NST is reactive/appropriate for gestational age. *Note to provider: If an addendum is required, open the patient's chart and click on the note under the Nurse/Allied Health tab.
== END 2024-04-16 04:05 | disposition home or self-care (01) ==
LOC: OB OUT 02:55 → OB 02:57
PROVIDERS: Visit Provider Midwife
DX: O24.419 Gestational diabetes mellitus in pregnancy, unspecified control (principal); O09.523 Supervision of elderly multigravida, third trimester; Z3A.30 30 weeks gestation of pregnancy
CPT/HCPCS: 59025; 81001; 81003; 87086; G0463

== ENCOUNTER 2024-05-08 11:12 | Outpatient (CLI) | payer OTHER, SELFPAY ==
--- NOTE | 2024-05-08 11:15 | CRLHL7_ITS ---
For Patients: As a result of the Century Cures Act, medical imaging exams and procedure reports are released immediately into your electronic medical record. You may view this report before your referring provider. If you have questions, please contact your health care provider. INDICATION: GDM, marginal CI in placenta TECHNIQUE: Real time andres scale imaging of the fetus was performed. COMPARISON: 02/10/2024 FINDINGS: Sonographic imaging demonstrates a single living intrauterine gestation. Fetus demonstrates a regular cardiac rate of 128 beats per minute. Fetus has a vertex position. The placenta lies anteriorly. Amniotic fluid volume appears normal and there is a single deepest pocket of 4.5 cm. The estimated weight is 2200gm which lies at the 47th %. On the prior OB ultrasound dated 02/10/2024 the estimated weight was at the 85th percentile. BPD 24th percentile. HC 38th percentile. AC 67th percentile. FL 28th percentile. The fetus demonstrated normal breathing movements. Gross body movements not observed. There was normal flexion and extension of the trunk and extremities. IMPRESSION: Biophysical profile 01/06. Sonographic gestational age 33 weeks 3 days and sonographic due date 06/23/2024. Good correlation with dates. Estimated weight 47th percentile. Abdominal circumference 67th percentile. Dictated by Toi Hernandez MD @ 05/08/2024 12:33:06 PM (Electronically Signed)
--- OUTSIDE RECORDS SUMMARY | 2024-05-08 11:58 | XMS_ITS | Clinical Summary ---
Author Organization [facility] Address [address] [place] [address] Care Team Providers Care Head Men'S Tennis Coach Name Role Phone No Ref-Primary, Physician Primary [...] drink = 0.6 oz pur e alcohol) [place] Depression Scale Answer Date Recorded [place] Depression Score 8 08/24/2021 Last EPDS Self [...] Comments Blood Pressure 148/91 08/26/2021 9:00 AM TOPOGRAPHIC COMPUTATOR Pulse 100 08/26/2021 5:49 AM TOPOGRAPHIC COMPUTATOR Temperature 37.2 ??C (99 ??F) 08/26/2021 1:22 AM TOPOGRAPHIC COMPUTATOR Respiratory Rate 18 08/26/2021 5:49 AM TOPOGRAPHIC COMPUTATOR Oxygen Saturation 98% 08/22/2021 3:11 PM TOPOGRAPHIC COMPUTATOR Inhaled Oxygen Concentration - - Weight 90.3 kg (199 lb) 08/24/2021 6:40 AM TOPOGRAPHIC COMPUTATOR Height - - Body Mass Index - [...] calendar year) 2023 COVID-19 Vaccine (1 - 2023-2 5 season) 2024 INFLUENZA VACCINE (#1) 2024 05/15/2009 GLUCOSE 08/23/2024 08/23/2021 RSV VACCINE (1 - 1-dose 75+ series) 2057 HIV SCREENING Completed 01/30/2021 HPV IMMUNIZATION Aged [...] COMPREHENSIVE METABOLIC PANEL Routine 08/23/2021 6:09 AM TOPOGRAPHIC COMPUTATOR HIV 1&2 ANTIBODY (EXTERNAL RESULT) Routine 01/30/2021 7:01 PM CDT from Last 3 Months or Most Recently Relevant to Health Maintenance Results * (ABNORMAL) Comprehensive metabolic panel (08/23/2021 6:09 AM TOPOGRAPHIC COMPUTATOR) Sodium 140 133 - 144 mmol/L 08/23/2021 6:[address] [facility] Potassium 4.6 3.4 - 5.3 mmol/L 08/23/2021 6:[address] [facility] Chloride 111(H) 94 - 109 mmol/L 08/23/2021 6:[address] [facility] Carbon Dioxide (CO2) 25 20 - 32 mmol/L 08/23/2021 6:[address] [facility] Anion Gap 4 3 - 14 mmol/L 08/23/2021 6:[address] [facility] Urea Nitrogen 12 7 - 30 mg/dL 08/23/2021 6:[address] [facility] Creatinine 0.77 0.52 - 1.04 mg/dL 08/23/2021 6:[address] [facility] Calcium 8.3(L) 8.5 - 10.1 mg/dL 08/23/2021 6:[address] [facility] Glucose 84 70 - 99 mg/dL 08/23/2021 6:[address] [facility] Alkaline Phosphatase 88 40 - 150 U/L 08/23/2021 6:[address] [facility] AST 21 0 - 45 U/L 08/23/2021 6:[address] [facility] ALT 15 0 - 50 U/L 08/23/2021 6:[address] [facility] Protein Total 6.0(L) 6.8 - 8.8 g/dL 08/23/2021 6:[address] [facility] Albumin 2.2(L) 3.4 - 5.0 g/dL 08/23/2021 6:59 AM TOPOGRAPHIC COMPUTATOR LABORATORY Bilirubin Total 0.2 0.2 - 1.3 mg/dL 08/23/2021 6:59 AM TOPOGRAPHIC COMPUTATOR [facility] GFR Estimate >90 >60 mL/min/1.7 3m2 08/23/2021 6:59 AM TOPOGRAPHIC COMPUTATOR LABORATORY Comment:Effective July 022020 eGFRcr in adults is calculated using the 2020 CKD-EPI creatinine equation which includes age and gender (Chastity et al., NEJ, DOI: 10.1056/TCEZar4606417) Blood STRUCTURE OF RIGHT HAND / Unknown Venipuncture / Unknown 08/23/2021 6:09 AM TOPOGRAPHIC COMPUTATOR 08/23/2021 6:25 AM TOPOGRAPHIC COMPUTATOR Alexandria Orr MD LAB - BLOOD ORDER [facility] [address] Lab (1st floor, no room number) [place] [address], [facility] [place] [phone] * HIV-1 Antibody (External Result) (01/30/2021 7:01 PM CDT) HIV 1&2 Antibody (External) Negative Nonreactive [facility] 01/30/2021 7:01 PM CDT Adore Nagy MD LAB - HIM MAINTENANCE MILLWRIGHT AL RESULT [facility] [address] [place] [address], [facility] [place] [phone] from Last 3 Months or Most Recently Relevant to Health Maintenance Advance Directives For more information, please contact: [phone] * Full Code (Latest Code Status on File) Date Activated Date Inactivated Comments 08/24/2021 8:04 AM 08/26/2021 12:36 PM All basic a nd advanced life-sustaining interventions are performed as appropriate Question Answer Comments Code status determined by: Discussion with leann nt/ legal decision maker Care Teams Head Men'S Tennis Coach Relationship Specialty Start Date End Date No Ref-Primary, Physician PCP - General 08/21/21
--- OUTSIDE RECORDS SUMMARY | 2024-05-08 11:58 | XMS_ITS | Encounter Summary ---
Author Organization [facility] [place] Address [address] [place] [address] Care Team Providers Care Clam Shucking Machine Tender Name Role Phone No Ref-Primary, Physician Primary Care Provider Encounter Details Date Type Department Care Team (Late st Contact Info) Description 08/18/2021 Orders Only [facility] Laboratory [address] [place] [phone] Adore Nagy MD [address] [place] [address] Pre-operative laboratory examination (Primary Dx) Social [...] COVID-19? No / Unsure 08/20/2021 9:02 AM SOFTWARE MAINTENANCE ENGINEER documented as of this encounter Plan of Treatment Not on file documented as of this encounter Results * Treponema Abs w Reflex to RPR and Titer (08/20/2021 9:19 AM SOFTWARE MAINTENANCE ENGINEER) Treponema Antibody Total Nonreactive Nonreactive 08/20/2021 2:36 PM SOFTWARE MAINTENANCE ENGINEER SPECIALTY CORE/PROT/EN DO Blood STRUCTURE OF RIGHT UPPER LIMB / Unknown Venipuncture / Unknown 08/20/2021 9:19 AM SOFTWARE MAINTENANCE ENGINEER 08/20/2021 9:20 AM SOFTWARE MAINTENANCE ENGINEER Adore Nagy MD LAB - BLOOD [facility] SPECIALTY CORE/PROT/ENDO UM Specialty Core/Prot/Endo [address] [facility] [address] [facility], Room 3-[address] [phone] * Hemoglobin (08/20/2021 9:19 AM SOFTWARE MAINTENANCE ENGINEER) Hemoglobin 12.4 11.7 - 15.7 g/dL 08/20/2021 9:30 AM SOFTWARE MAINTENANCE ENGINEER LABORATORY Blood STRUCTURE OF RIGHT UPPER LIMB / Unknown Venipuncture / Unknown 08/20/2021 9:19 AM SOFTWARE MAINTENANCE ENGINEER 08/20/2021 9:22 AM SOFTWARE MAINTENANCE ENGINEER Adore Nagy MD LAB - BLOOD [facility] Lab [address] Lab (1st floor, no room number) [place] [address], [facility] [phone] documented in this encounter Visit Diagnoses Diagnosis Pre-operative laboratory examination- Primary Pre-procedural laboratory examination documented in this encounter Care Teams Clam Shucking Machine Tender Relationship Specialty Start Date End Date No Ref-Primary, Physician PCP - General 08/21/21 documented as of this encounter
--- OUTSIDE RECORDS SUMMARY | 2024-05-08 11:58 | XMS_ITS | Referral Summary ---
Author Organization [facility] Address [address] [place] [address] Care Team Providers Care Movie Editor Name Role Phone No Ref-Primary, Physician Primary [...] drink = 0.6 oz pur e alcohol) [place] Depression Scale Answer Date Recorded [place] Depression Score 8 08/24/2021 Last EPDS Self [...] Comments Blood Pressure 148/91 08/26/2021 9:00 AM SWIMMING POOL CLEANER Pulse 100 08/26/2021 5:49 AM SWIMMING POOL CLEANER Temperature 37.2 ??C (99 ??F) 08/26/2021 1:22 AM SWIMMING POOL CLEANER Respiratory Rate 18 08/26/2021 5:49 AM SWIMMING POOL CLEANER Oxygen Saturation 98% 08/22/2021 3:11 PM SWIMMING POOL CLEANER Inhaled Oxygen Concentration - - Weight 90.3 kg (199 lb) 08/24/2021 6:40 AM SWIMMING POOL CLEANER Height - - Body Mass Index - - Plan of Treatment Not on file Procedures Procedure Name Priority Date/Time Associated Diagnosis Comments COMPREHENSIVE METABOLIC PANEL Routine 08/23/2021 6:09 AM SWIMMING POOL CLEANER HIV 1&2 ANTIBODY (EXTERNAL RESULT) Routine 01/30/2021 7:01 PM CDT from Last 3 Months or Most Recently Relevant to Health Maintenance Results * (ABNORMAL) Comprehensive metabolic panel (08/23/2021 6:09 AM SWIMMING POOL CLEANER) Sodium 140 133 - 144 mmol/L 08/23/2021 [...] 7 - 30 mg/dL 08/23/2021 6:59 AM SWIMMING POOL CLEANER LABORATORY Creatinine 0.77 0.52 - 1.04 mg/dL 08/23/2021 6:59 AM SWIMMING POOL CLEANER LABORATORY Calcium 8.3(L) 8.5 - 10.1 mg/dL 08/23/2021 6:59 AM SWIMMING POOL CLEANER LABORATORY Glucose 84 70 - 99 mg/dL 08/23/2021 6:59 AM SWIMMING POOL CLEANER LAB[facility] Alkaline Phosphatase 88 40 - 150 U/L 08/23/2021 6:59 AM SWIMMING POOL CLEANER LAB[facility] AST 21 0 - 45 U/L 08/23/2021 6:59 AM SWIMMING POOL CLEANER LAB[facility] ALT 15 0 - 50 U/L 08/23/2021 6:59 AM SWIMMING POOL CLEANER LAB[facility] Protein Total 6.0(L) 6.8 - 8.8 g/dL 08/23/2021 6:59 AM SWIMMING POOL CLEANER LABORATORY Albumin 2.2(L) 3.4 - 5.0 g/dL 08/23/2021 6:[address] [facility] Bilirubin Total 0.2 0.2 - 1.3 mg/dL 08/23/2021 6:59 AM SWIMMING POOL CLEANER LABORATORY GFR Estimate >90 >60 mL/min/1.7 3m2 08/23/2021 6:[address] [facility] Comment:Effective July 022020 eGFRcr in adults is calculated using the 2020 CKD-EPI creatinine equation which includes age and gender (Chastity et al., NE, DOI: 10.1056/SBZNwq4826801) Blood STRUCTURE OF RIGHT HAND / Unknown Venipuncture / Unknown 08/23/2021 6:09 AM SWIMMING POOL CLEANER 08/23/2021 6:25 AM SWIMMING POOL CLEANER Alexandria Orr MD LAB - BLOOD ORDER [facility] Lab [address] [facility] Lab (1st floor, no room number) [place] [address], [facility] [phone] * HIV-1 Antibody (External Result) (01/30/2021 7:01 PM CDT) [facility] HIV 1&2 Antibody (External) Negative Nonreactive [facility] 01/30/2021 7:01 PM CDT Adore Nagy MD LAB - HIM LOG PROCESSOR OPERATOR AL RESULT [facility] [address] [place], [place] [address] [phone] from Last 3 Months or Most Recently Relevant to Health Maintenance Advance Directives For more information, please contact: [phone] * Full Code (Latest Code Status on File) Date Activated Date Inactivated Comments 08/24/2021 8:04 AM 08/26/2021 12:36 PM All basic a nd advanced life-sustaining interventions are performed as appropriate Question Answer Comments Code status determined by: Discussion with leann nt/ legal decision maker Care Teams Movie Editor Relationship Specialty Start Date End Date No Ref-Primary, Physician PCP - General 08/21/21
--- OUTSIDE RECORDS SUMMARY | 2024-05-08 11:58 | XMS_ITS | Clinical Summary ---
[facility] Organization [facility] Address [address], [place] [address] Care Team Providers Care Skate Boarder Name Role Phone Needs Pcp, Assignment Primary Care Provider [phone] Source Comments You are receiving this document as you are listed as the primary care provider,follow-up provider, or the patient has been referred to you for consultation.This is in compliance with the Medicare and[facility] EHR Incentive Program,which states Providers who transition their patient to another setting of careor provider of care or refers their patient to another provider of care shouldprovide summary care record for each transition of care or referral. [facility] Allergies No known active allergies Medications Medication [...] Done Comments Cervical Cancer Screening Due 1982 Mammogram 1982 HepB (1) 2001 DTaP/Tdap/Td [...] patient's age to complete this topic RSV Aged Out No longer eligi ble based [...] Negative (Non Reactive) 01/30/2021 4:28 PM CDT [facility] Comment:HIV-1 p24 Antigen an d HIV-1/HIV-2 Antibody not detected Blood Venipuncture / Unknown 01/30/2021 11:42 AM CDT 01/30/2021 11:42 AM CDT Priti Arzola APRN, CNM LAB_1 Performing Organization Address [facility] de Phone Number [facility] [employer] [address] * HEPATITIS C ANTIBODY, WITH REFLEX (01/30/2021 11:42 AM CDT) Hepatitis C Antibody Negative (Non Reactive) Negative (Non Reactive) 01/30/2021 4:28 PM CDT [facility] Comment:Antibodies to HCV no t detected. Does not exclude the possiblity of exposure to HCV. Blood Venipuncture / Unknown 01/30/2021 11:42 AM CDT 01/30/2021 11:42 AM CDT Priti Arzola APRN, CNM LAB_1 Performing Organization Address [facility] de Phone Number [facility] [employer] [address] from Last 3 Months or Most Recently Relevant to Health Maintenance Care Teams Skate Boarder Relationship Specialty Start Date End Date Needs Pcp, [place] [address] PCP - General 07/27/21
== END 2024-05-08 11:13 | disposition home or self-care (01) ==
LOC: US 11:13
PROVIDERS: Visit Provider Midwife
DX: O24.419 Gestational diabetes mellitus in pregnancy, unspecified control (principal); O09.523 Supervision of elderly multigravida, third trimester; Z3A.33 33 weeks gestation of pregnancy
CPT/HCPCS: 76816; 76819

== ENCOUNTER 2024-05-28 11:05 | Outpatient (CLI) | payer SELFPAY ==
--- OUTSIDE RECORDS SUMMARY | 2024-05-28 11:07 | XMS_ITS | Clinical Summary ---
Author Organization [facility] Address [address] [address] Care Team Providers Care Disability Aide Name Role Phone Needs Pcp, Assignment Primary Care Provider [phone] Source Comments You are receiving this document as you are listed as the primary care provider,follow-up provider, or the patient has been referred to you for consultation.This is in compliance with the Medicare and[facility] EHR Incentive Program,which states Providers who transition their patient to another setting of careor provider of care or refers their patient to another provider of care shouldprovide summary care record for each transition of care or referral. [facility] Allergies No known active allergies Medications Medication [...] Negative (Non Reactive) 01/30/2021 4:28 PM CDT [facility] [facility] Comment:HIV-1 p24 Antigen an d HIV-1/HIV-2 Antibody not detected Blood Venipuncture / Unknown 01/30/2021 11:42 AM CDT 01/30/2021 11:42 AM CDT Priti Arzola APRN, CNM LAB_1 Performing Organization Address [facility] de Phone Number [place] [facility] [address] * HEPATITIS C ANTIBODY, WITH REFLEX (01/30/2021 11:42 AM CDT) Hepatitis C Antibody Negative (Non Reactive) Negative (Non Reactive) 01/30/2021 4:28 PM CDT [facility] Comment:Antibodies to HCV no t detected. Does not exclude the possiblity of exposure to HCV. Blood Venipuncture / Unknown 01/30/2021 11:42 AM CDT 01/30/2021 11:42 AM CDT Priti Arzola APRN, CNM LAB_1 Performing Organization Address [facility] de Phone Number [place] [facility] [employer] [address] from Last 3 Months or Most Recently Relevant to Health Maintenance Care Teams Disability Aide Relationship Specialty Start Date End Date Needs Pcp, [place] [address] PCP - General 07/27/21
--- OUTSIDE RECORDS SUMMARY | 2024-05-28 11:07 | XMS_ITS | Referral Summary ---
Author Organization [facility] Address [address] [place] [address] Care Team Providers Care Terra Cotta Roofer Helper Name Role Phone No Ref-Primary, Physician Primary Care Provider Allergies No known active allergies Medications MV-Min-Fe Fum-FA-DHA ( 1 PO) Take 1 tablet by mouth daily Active acetaminophen (TYLENOL) 325 MG tabletIndicatio ns:Preeclampsia , severe, third trimester,S/P section Take 3 tablets (975 mg) by mouth every 6 hours 2 Active ibuprofen (ADVIL/MOTRIN) 800 MG tabletIndicatio ns:Preeclampsia , severe, third trimester,S/P section Take 1 tablet (800 mg) by mouth every 6 hours as needed for moderate pain 60 tablet 1 2 Active NIFEdipine ER OSMOTIC (ADALAT CC) 60 MG 24 hr tabletIndicatio ns:Preeclampsia , severe, third trimester,S/P section Take 1 tablet (60 mg) by mouth daily 30 tablet 1 2 Active senna-docusate (SENOKOT-S/SUSANA COLACE) 8.6-50 MG tabletIndicatio ns:Preeclampsia , severe, third trimester,S/P section Take 1 tablet by mouth 2 times daily as needed for constipation 15 tablet 2 Active acetaminophen (TYLENOL) 325 MG tabletIndicatio ns:S/P section Take 1-2 tablets (325-650 mg) by mouth every 6 hours as needed for mild pain or fever 60 tablet 2 Active Active Problems Problem Noted Date Diagnosed Date S/P section 08/21/2021 Social History Tobacco Use Types Packs/Day Years Used Date Smoking Tobacco: Never Smokeless Tobacco: Never Alcohol Use Standard Drinks/Week Comments Not Currently 0 (1 standard drink = 0.6 oz pur e alcohol) [place] Depression Scale Answer Date Recorded [place] Depression Score 8 08/24/2021 Last EPDS Self Harm Result Not on file 08/24 Adolescent Education Answer Date Record ed Getting School Help Needed Not on file 04/23 Comments No Sex and Gender Information Value Date Recorded Sex Assigned at Not on file Legal Sex Female 9:33 AM ELECTRIC MOTOR CONTROL ASSEMBLER Gender Identity Not on file Sexual Orientation Not on file Last Filed Vital Signs Vital Sign Reading Time Taken Comments Blood Pressure 148/91 08/26/2021 9:00 AM ELECTRIC MOTOR CONTROL ASSEMBLER Pulse 100 08/26/2021 5:49 AM ELECTRIC MOTOR CONTROL ASSEMBLER Temperature 37.2 ??C (99 ??F) 08/26/2021 1:22 AM ELECTRIC MOTOR CONTROL ASSEMBLER Respiratory Rate 18 08/26/2021 5:49 AM ELECTRIC MOTOR CONTROL ASSEMBLER Oxygen Saturation 98% 08/22/2021 3:11 PM ELECTRIC MOTOR CONTROL ASSEMBLER Inhaled Oxygen Concentration - - Weight 90.3 kg (199 lb) 08/24/2021 6:40 AM ELECTRIC MOTOR CONTROL ASSEMBLER Height - - Body Mass Index - - Plan of Treatment Not on file Procedures Procedure Name Priority Date/Time Associated Diagnosis Comments COMPREHENSIVE METABOLIC PANEL Routine 08/23/2021 6:09 AM ELECTRIC MOTOR CONTROL ASSEMBLER HIV 1&2 ANTIBODY (EXTERNAL RESULT) Routine 01/30/2021 7:01 PM CDT from Last 3 Months or Most Recently Relevant to Health Maintenance Results * (ABNORMAL) Comprehensive metabolic panel (08/23/2021 6:09 AM ELECTRIC MOTOR CONTROL ASSEMBLER) Sodium 140 133 - 144 mmol/L 08/23/2021 6:59 AM ELECTRIC MOTOR CONTROL ASSEMBLER [facility] Potassium 4.6 3.4 - 5.3 mmol/L 08/23/2021 6:59 AM ELECTRIC MOTOR CONTROL ASSEMBLER [facility] Chloride 111(H) 94 - 109 mmol/L 08/23/2021 6:59 AM ELECTRIC MOTOR CONTROL ASSEMBLER [facility] Carbon Dioxide (CO2) 25 20 - 32 mmol/L 08/23/2021 6:59 AM ELECTRIC MOTOR CONTROL ASSEMBLER [facility] Anion Gap 4 3 - 14 mmol/L 08/23/2021 6:59 AM [facility] Urea Nitrogen 12 7 - 30 mg/dL 08/23/2021 6:59 AM [facility] Creatinine 0.77 0.52 - 1.04 mg/dL 08/23/2021 6:59 AM [facility] Calcium 8.3(L) 8.5 - 10.1 mg/dL 08/23/2021 6:59 AM [facility] Glucose 84 70 - 99 mg/dL 08/23/2021 6:59 AM [facility] Alkaline Phosphatase 88 40 - 150 U/L 08/23/2021 6:59 AM [facility] AST 21 0 - 45 U/L 08/23/2021 6:59 AM [facility] ALT 15 0 - 50 U/L 08/23/2021 6:59 AM [facility] Protein Total 6.0(L) 6.8 - 8.8 g/dL 08/23/2021 6:59 AM [facility] Albumin 2.2(L) 3.4 - 5.0 g/dL 08/23/2021 6:59 AM [facility] Bilirubin Total 0.2 0.2 - 1.3 mg/dL 08/23/2021 6:59 AM [facility] GFR Estimate >90 >60 mL/min/1.7 3m2 08/23/2021 6:59 AM [facility] Comment:Effective July 022020 eGFRcr in adults is calculated using the 2020 CKD-EPI creatinine equation which includes age and gender (Chastity et al., NEJM, DOI: 10.1056/PTXWpo5584429) Blood STRUCTURE OF RIGHT HAND / Unknown Venipuncture / Unknown 08/23/2021 6:09 AM ELECTRIC MOTOR CONTROL ASSEMBLER 08/23/2021 6:25 AM ELECTRIC MOTOR CONTROL ASSEMBLER us Alexandria Orr MD LAB - BLOOD ORDERABLES Fi nal Result LABORATORY [facility] Acute Care Lab [address] Lab (1st floor, no room number) [place] [address], [facility] [phone] * HIV-1 Antibody (External Result) (01/30/2021 7:01 PM CDT) HIV 1&2 Antibody (External) Negative Nonreactive [facility] 01/30/2021 7:01 PM CDT us Adore Nagy MD LAB - HIM EXTERNAL RESUL T Final Result [facility] [address] [place] [address], [facility] [phone] from Last 3 Months or Most Recently Relevant to Health Maintenance Insurance MEDICA NON-FV ACO NON IFB Advance Directives For more information, please contact: [phone] * Full Code (Latest Code Status on File) Date Activated Date Inactivated Comments 08/24/2021 8:04 AM 08/26/2021 12:36 PM All basic a nd advanced life-sustaining interventions are performed as appropriate Question Answer Comments Code status determined by: Discussion with patie nt/ legal decision maker Care Teams Terra Cotta Roofer Helper Relationship Specialty Start Date End Date No Ref-Primary, Physician PCP - General 08/21/21
--- OUTSIDE RECORDS SUMMARY | 2024-05-28 11:07 | XMS_ITS | Encounter Summary ---
Author Organization [place] Address [address] [place] [address] Care Team Providers Care Flour Mixer Name Role Phone No Ref-Primary, Physician Primary Care Provider Encounter Details Date Type Department Care Team (Late st Contact Info) Description 08/18/2021 Orders Only [facility] Laboratory [address] [place] [address] Adore Nagy MD [address] [place] [address] Pre-operative laboratory examination (Primary Dx) Social History Tobacco Use Types Packs/Day Years Used Date Smoking Tobacco: Never Smokeless Tobacco: Never Alcohol Use Standard Drinks/Week Comments Not Currently 0 (1 standard drink = 0.6 oz pur e alcohol) Comments Yes Sex and Gender Information Value Date Recorded Sex Assigned at Not on file Legal Sex Female 9:33 AM LABEL MAKER Gender Identity Not on file Sexual Orientation Not on file COVID-19 Exposure Response Date Recorded In the last month, have you been in contact with someone who was confirmed or suspected to have Coronavirus / COVID-19? No / Unsure 08/20/2021 9:02 AM LABEL MAKER documented as of this encounter Plan of Treatment Not on file documented as of this encounter Results * Treponema Abs w Reflex to RPR and Titer (08/20/2021 9:19 AM LABEL MAKER) Treponema Antibody Total Nonreactive Nonreactive 08/20/2021 2:36 PM LABEL MAKER UM SPECIALTY CORE/PROT/EN DO Blood STRUCTURE OF RIGHT UPPER LIMB / Unknown Venipuncture / Unknown 08/20/2021 9:19 AM LABEL MAKER 08/20/2021 9:20 AM LABEL MAKER Adore Nagy MD LAB - BLOOD ORDERABLES F inal Result [facility] SPECIALTY CORE/PROT/ENDO UM Specialty Core/Prot/Endo [address] [facility] [address], [address] [place] [address], [place] [phone] * Hemoglobin (08/20/2021 9:19 AM LABEL MAKER) Hemoglobin 12.4 11.7 - 15.7 g/dL 08/20/2021 9:30 AM LABEL MAKER LABORATORY Blood STRUCTURE OF RIGHT UPPER LIMB / Unknown Venipuncture / Unknown 08/20/2021 9:19 AM LABEL MAKER 08/20/2021 9:22 AM LABEL MAKER Adore Nagy MD LAB - BLOOD ORDERABLES F inal Result LABORATORY [facility] Acute Care Lab [address] Lab (1st floor, no room number) [place] [address], [place] [phone] documented in this encounter Visit Diagnoses Diagnosis Pre-operative laboratory examination- Primary Pre-procedural laboratory examination documented in this encounter Care Teams Flour Mixer Relationship Specialty Start Date End Date No Ref-Primary, Physician PCP - General 08/21/21 documented as of this encounter
--- OUTSIDE RECORDS SUMMARY | 2024-05-28 11:07 | XMS_ITS | Clinical Summary ---
Author Organization [facility] Address [address] [place] [address] Care Team Providers Care Jail Guard Name Role Phone No Ref-Primary, Physician Primary [...] drink = 0.6 oz pur e alcohol) Harper Depression Scale Answer Date Recorded Harper Depression Score 8 08/24/2021 Last EPDS Self Harm Result Not on file 08/24 Adolescent Education Answer Date Record ed Getting School Help Needed Not on file 04/23 Comments No Sex and Gender Information Value Date Recorded Sex Assigned at Not on file Legal Sex Female 9:33 AM CIDER PRESS OPERATOR Gender Identity Not on file Sexual Orientation Not on file Last Filed Vital Signs Vital Sign Reading Time Taken Comments Blood Pressure 148/91 08/26/2021 9:00 AM CIDER PRESS OPERATOR Pulse 100 08/26/2021 5:49 AM CIDER PRESS OPERATOR Temperature 37.2 ??C (99 ??F) 08/26/2021 1:22 AM CIDER PRESS OPERATOR Respiratory Rate 18 08/26/2021 5:49 AM CIDER PRESS OPERATOR Oxygen Saturation 98% 08/22/2021 3:11 PM CIDER PRESS OPERATOR Inhaled Oxygen Concentration - - Weight 90.3 kg (199 lb) 08/24/2021 6:40 AM CIDER PRESS OPERATOR Height - - Body Mass Index - [...] (once per calendar year) 2023 COVID-19 Vaccine ( - 2023-2 5 season) 2024 INFLUENZA VACCINE [...] COMPREHENSIVE METABOLIC PANEL Routine 08/23/2021 6:09 AM CIDER PRESS OPERATOR HIV 1&2 ANTIBODY (EXTERNAL RESULT) Routine 01/30/2021 7:01 PM CDT from Last 3 Months or Most Recently Relevant to Health Maintenance Results * (ABNORMAL) Comprehensive metabolic panel (08/23/2021 6:09 AM CIDER PRESS OPERATOR) Sodium 140 133 - 144 mmol/L 08/23/2021 6:59 AM [facility] Potassium 4.6 3.4 - 5.3 mmol/L 08/23/2021 6:59 AM [facility] Chloride 111(H) 94 - 109 mmol/L 08/23/2021 6:59 AM [facility] Carbon Dioxide (CO2) 25 20 - 32 mmol/L 08/23/2021 6:59 AM [facility] Anion Gap 4 3 - 14 mmol/L 08/23/2021 6:59 AM [facility] Urea Nitrogen 12 7 - 30 mg/dL 08/23/2021 6:59 AM [facility] Creatinine 0.77 0.52 - 1.04 mg/dL 08/23/2021 6:59 AM [facility] Calcium 8.3(L) 8.5 - 10.1 mg/dL 08/23/2021 6:59 AM [facility] Glucose 84 70 - 99 mg/dL 08/23/2021 6:59 AM [facility] Alkaline Phosphatase 88 40 - 150 U/L 08/23/2021 6:59 AM [facility] AST 21 0 - 45 U/L 08/23/2021 6:59 AM [facility] ALT 15 0 - 50 U/L 08/23/2021 6:59 AM [facility] Protein Total 6.0(L) 6.8 - 8.8 g/dL 08/23/2021 6:59 AM CIDER PRESS [facility]PER[facility] Albumin 2.2(L) 3.4 - 5.0 g/dL 08/23/2021 6:59 AM CIDER PRESS OPERATOR [facility] Bilirubin Total 0.2 0.2 - 1.3 mg/dL 08/23/2021 6:59 AM CIDER PRESS OPERATOR [facility] GFR Estimate >90 >60 mL/min/1.7 3m2 08/23/2021 6:59 AM CIDER PRESS OPERATOR [facility] Comment:Effective July 022020 eGFRcr in adults is calculated using the 2020 CKD-EPI creatinine equation which includes age and gender (Chastity et al., NEJ, DOI: 10.1056/STEUok0972643) Blood STRUCTURE OF RIGHT HAND / Unknown Venipuncture / Unknown 08/23/2021 6:09 AM CIDER PRESS OPERATOR 08/23/2021 6:25 AM CIDER PRESS OPERATOR us Alexandria Orr MD LAB - BLOOD ORDERABLES Fi nal Result LABORATORY [facility] [address] Lab (1st floor, no room number) [place] [address], [facility] [phone] * HIV-1 Antibody (External Result) (01/30/2021 7:01 PM CDT) HIV 1&2 Antibody (External) Negative Nonreactive [facility] 01/30/2021 7:01 PM CDT us Adore Nagy MD LAB - HIM EXTERNAL RESUL T Final Result [facility] [address] [place] [address], [facility] [phone] from Last 3 Months or Most Recently Relevant to Health Maintenance Insurance MEDICA NON-FV ACO NON IFB Advance Directives For more information, please contact: [phone] * Full Code (Latest Code Status on File) Date Activated Date Inactivated Comments 08/24/2021 8:04 AM 08/26/2021 12:36 PM All basic a nd advanced life-sustaining interventions are performed as appropriate Question Answer Comments Code status determined by: Discussion with patie nt/ legal decision maker Care Teams Jail Guard Relationship Specialty Start Date End Date No Ref-Primary, Physician PCP - General 08/21/21
[2024-05-29 12:48] LABS: Strep B DNA Probe Negative (Negative)
[2024-05-29 13:32] LABS: Strep B Susceptibility Needed? No
== END 2024-05-28 11:06 | disposition home or self-care (01) ==
LOC: NFLDREF 11:05
PROVIDERS: Visit Provider Midwife
DX: Z34.93 Encounter for supervision of normal pregnancy, unspecified, third trimester (principal); Z3A.37 37 weeks gestation of pregnancy
CPT/HCPCS: 87081; 87653

== ENCOUNTER 2024-06-04 10:07 | Outpatient (CLI) | payer SELFPAY ==
--- OUTSIDE RECORDS SUMMARY | 2024-06-04 10:10 | XMS_ITS | Clinical Summary ---
Author Organization [facility] Address [address] [place] [address] Care Team Providers Care Cardiac Specialist Name Role Phone No Ref-Primary, Physician Primary [...] drink = 0.6 oz pur e alcohol) Clarendon Depression Scale Answer Date Recorded Cla[place]on Depression Score 8 08/24/2021 Last EPDS Self Harm Result Not on file 08/24 Adolescent Education Answer Date Record ed Getting School Help Needed Not on file 04/23 Comments No Sex and Gender Information Value Date Recorded Sex Assigned at Not on file Legal Sex Female 9:33 AM AUTOMOTIVE DIAGNOSTIC TECHNICIAN Gender Identity Not on file Sexual Orientation Not on file Last Filed Vital Signs Vital Sign Reading Time Taken Comments Blood Pressure 148/91 08/26/2021 9:00 AM AUTOMOTIVE DIAGNOSTIC TECHNICIAN Pulse 100 08/26/2021 5:49 AM AUTOMOTIVE DIAGNOSTIC TECHNICIAN Temperature 37.2 ??C (99 ??F) 08/26/2021 1:22 AM AUTOMOTIVE DIAGNOSTIC TECHNICIAN Respiratory Rate 18 08/26/2021 5:49 AM AUTOMOTIVE DIAGNOSTIC TECHNICIAN Oxygen Saturation 98% 08/22/2021 3:11 PM AUTOMOTIVE DIAGNOSTIC TECHNICIAN Inhaled Oxygen Concentration - - Weight 90.3 kg (199 lb) 08/24/2021 6:40 AM AUTOMOTIVE DIAGNOSTIC TECHNICIAN Height - - Body Mass Index - [...] COMPREHENSIVE METABOLIC PANEL Routine 08/23/2021 6:09 AM AUTOMOTIVE DIAGNOSTIC TECHNICIAN HIV 1&2 ANTIBODY (EXTERNAL RESULT) Routine 01/30/2021 7:01 PM CDT from Last 3 Months or Most Recently Relevant to Health Maintenance Results * (ABNORMAL) Comprehensive metabolic panel (08/23/2021 6:09 AM AUTOMOTIVE DIAGNOSTIC TECHNICIAN) Sodium 140 133 - 144 mmol/L 08/23/2021 6:[address] [facility] Potassium 4.6 3.4 - 5.3 mmol/L 08/23/2021 6:[address] [facility] Chloride 111(H) 94 - 109 mmol/L 08/23/2021 6:[address] [facility] Carbon Dioxide (CO2) 25 20 - 32 mmol/L 08/23/2021 6:[address] [facility] Anion Gap 4 3 - 14 mmol/L 08/23/2021 6:[address] [facility] Urea Nitrogen 12 7 - 30 mg/dL 08/23/2021 6:[address] [facility] Creatinine 0.77 0.52 - 1.04 mg/dL 08/23/2021 6:[address] [facility] Calcium 8.3(L) 8.5 - 10.1 mg/dL 08/23/2021 6:[address] [facility] Glucose 84 70 - 99 mg/dL 08/23/2021 6:[address] [facility] Alkaline Phosphatase 88 40 - 150 U/L 08/23/2021 6:[address] [facility] AST 21 0 - 45 U/L 08/23/2021 6:[address] [facility] ALT 15 0 - 50 U/L 08/23/2021 6:[address] [facility] Protein Total 6.0(L) 6.8 - 8.8 g/dL 08/23/2021 6:59 AM AUTOMOTIVE DIAGNOSTIC TECHNICIAN LABORATORY Albumin 2.2(L) 3.4 - 5.0 g/dL 08/23/2021 6:59 AM AUTOMOTIVE DIAGNOSTIC TECHNICIAN [facility] Bilirubin Total 0.2 0.2 - 1.3 mg/dL 08/23/2021 6:59 AM AUTOMOTIVE DIAGNOSTIC TECHNICIAN [facility]ORY GFR Estimate >90 >60 mL/min/1.7 3m2 08/23/2021 6:59 AM AUTOMOTIVE DIAGNOSTIC TECHNICIAN [facility]ORY Comment:Effective July 022020 eGFRcr in adults is calculated using the 2020 CKD-EPI creatinine equation which includes age and gender (Chastity et al., NEJ, DOI: 10.1056/LRJJws7536291) Blood STRUCTURE OF RIGHT HAND / Unknown Venipuncture / Unknown 08/23/2021 6:09 AM AUTOMOTIVE DIAGNOSTIC TECHNICIAN 08/23/2021 6:25 AM AUTOMOTIVE DIAGNOSTIC TECHNICIAN us Alexandria Orr MD LAB - BLOOD ORDERABLES Fi nal Result LABORATORY [facility] [address] Lab (1st floor, no room number) [place] [address], [facility] [phone] * HIV-1 Antibody (External Result) (01/30/2021 7:01 PM CDT) HIV 1&2 Antibody (External) Negative Nonreactive [facility] 01/30/2021 7:01 PM CDT us Adore Nagy MD LAB - HIM EXTERNAL RESUL T Final Result [facility] [address] [place] [address], [facility] [phone] from Last 3 Months or Most Recently Relevant to Health Maintenance Insurance MEDICA NON-FV ACO NON IFB Advance Directives For more information, please contact: [phone] * Full Code (Latest Code Status on File) Date Activated Date Inactivated Comments 08/24/2021 8:04 AM 08/26/2021 12:36 PM All basic a nd advanced life-sustaining interventions are performed as appropriate Question Answer Comments Code status determined by: Discussion with patie nt/ legal decision maker Care Teams Cardiac Specialist Relationship Specialty Start Date End Date No Ref-Primary, Physician PCP - General 08/21/21
--- OUTSIDE RECORDS SUMMARY | 2024-06-04 10:10 | XMS_ITS | Clinical Summary ---
[facility] Address [address], [place] [address] Care Team Providers Care Mail Caller Name Role Phone Needs Pcp, Assignment Primary Care Provider [phone] Source Comments You are receiving this document as you are listed as the primary care provider,follow-up provider, or the patient has been referred to you for consultation.This is in compliance with the Medicare and[facility] EHR Incentive Program,which states Providers who transition their patient to another setting of careor provider of care or refers their patient to another provider of care shouldprovide summary care record for each transition of care or referral. [facility] Allergies No known active allergies Medications Medication [...] Negative (Non Reactive) 01/30/2021 4:28 PM CDT [facility] Comment:HIV-1 p24 Antigen an d HIV-1/HIV-2 Antibody not detected Blood Venipuncture / Unknown 01/30/2021 11:42 AM CDT 01/30/2021 11:42 AM CDT Priti Arzola APRN, CNM LAB_1 Performing Organization Address [facility] de Phone Number [facility] [address] * HEPATITIS C ANTIBODY, WITH REFLEX (01/30/2021 11:42 AM CDT) Hepatitis C Antibody Negative (Non Reactive) Negative (Non Reactive) 01/30/2021 4:28 PM CDT [facility] Comment:Antibodies to HCV no t detected. Does not exclude the possiblity of exposure to HCV. Blood Venipuncture / Unknown 01/30/2021 11:42 AM CDT 01/30/2021 11:42 AM CDT Priti Arzola APRN, CNM LAB_1 Performing Organization Address [facility] de Phone Number [facility] [employer] [address] from Last 3 Months or Most Recently Relevant to Health Maintenance Care Teams Mail Caller Relationship Specialty Start Date End Date Needs Pcp, [place] [address] PCP - General 07/27/21
--- OUTSIDE RECORDS SUMMARY | 2024-06-04 10:11 | XMS_ITS | Encounter Summary ---
Author Organization [facility] Address [address] [place] [address] Care Team Providers Care School Boat Driver Name Role Phone No Ref-Primary, Physician Primary Care Provider Encounter Details Date Type Department Care Team (Late st Contact Info) Description 08/18/2021 Orders Only [facility] [address] [place] [id number] Adore Nagy MD [address] [place] [address] Pre-operative laboratory examination (Primary Dx) Social History Tobacco Use Types Packs/Day Years Used Date Smoking Tobacco: Never Smokeless Tobacco: Never Alcohol Use Standard Drinks/Week Comments Not Currently 0 (1 standard drink = 0.6 oz pur e alcohol) Comments Yes Sex and Gender Information Value Date Recorded Sex Assigned at Not on file Legal Sex Female 9:33 AM FOUNTAIN WORKER Gender Identity Not on file Sexual Orientation Not on file COVID-19 Exposure Response Date Recorded In the last month, have you been in contact with someone who was confirmed or suspected to have Coronavirus / COVID-19? No / Unsure 08/20/2021 9:02 AM FOUNTAIN WORKER documented as of this encounter Plan of Treatment Not on file documented as of this encounter Results * Treponema Abs w Reflex to RPR and Titer (08/20/2021 9:19 AM FOUNTAIN WORKER) Treponema Antibody Total Nonreactive Nonreactive 08/20/2021 2:36 PM FOUNTAIN WORKER [facility] DO Blood STRUCTURE OF RIGHT UPPER LIMB / Unknown Venipuncture / Unknown 08/20/2021 9:19 AM FOUNTAIN WORKER 08/20/2021 9:20 AM FOUNTAIN WORKER Adore Nagy MD LAB - BLOOD ORDERABLES F inal Result [facility] [address] [facility] [address], [address] [place] [address], [facility] [phone] * Hemoglobin (08/20/2021 9:19 AM FOUNTAIN WORKER) Hemoglobin 12.4 11.7 - 15.7 g/dL 08/20/2021 9:30 AM FOUNTAIN WORKER LABORATORY Blood STRUCTURE OF RIGHT UPPER LIMB / Unknown Venipuncture / Unknown 08/20/2021 9:19 AM FOUNTAIN WORKER 08/20/2021 9:22 AM FOUNTAIN WORKER Adore Nagy MD LAB - BLOOD ORDERABLES F inal Result LABORATORY [facility] [address] Lab (1st floor, no room number) [place] [address], [place] [phone] documented in this encounter Visit Diagnoses Diagnosis Pre-operative laboratory examination- Primary Pre-procedural laboratory examination documented in this encounter Care Teams School Boat Driver Relationship Specialty Start Date End Date No Ref-Primary, Physician PCP - General 08/21/21 documented as of this encounter
--- OUTSIDE RECORDS SUMMARY | 2024-06-04 10:11 | XMS_ITS | Referral Summary ---
Author Organization [facility] Address [address] [place] [address] Care Team Providers Care Jewelry Salesperson Name Role Phone No Ref-Primary, Physician Primary [...] drink = 0.6 oz pur e alcohol) Clay Depression Scale Answer Date Recorded Clay Depression Score 8 08/24/2021 Last EPDS Self Harm Result Not on file 08/24 Adolescent Education Answer Date Record ed Getting School Help Needed Not on file 04/23 Comments No Sex and Gender Information Value Date Recorded Sex Assigned at Not on file Legal Sex Female 9:33 AM SPAGHETTI MACHINE OPERATOR Gender Identity Not on file Sexual Orientation Not on file Last Filed Vital Signs Vital Sign Reading Time Taken Comments Blood Pressure 148/91 08/26/2021 9:00 AM SPAGHETTI MACHINE OPERATOR Pulse 100 08/26/2021 5:49 AM SPAGHETTI MACHINE OPERATOR Temperature 37.2 ??C (99 ??F) 08/26/2021 1:22 AM SPAGHETTI MACHINE OPERATOR Respiratory Rate 18 08/26/2021 5:49 AM SPAGHETTI MACHINE OPERATOR Oxygen Saturation 98% 08/22/2021 3:11 PM SPAGHETTI MACHINE OPERATOR Inhaled Oxygen Concentration - - Weight 90.3 kg (199 lb) 08/24/2021 6:40 AM SPAGHETTI MACHINE OPERATOR Height - - Body Mass Index - - Plan of Treatment Not on file Procedures Procedure Name Priority Date/Time Associated Diagnosis Comments COMPREHENSIVE METABOLIC PANEL Routine 08/23/2021 6:09 AM SPAGHETTI MACHINE OPERATOR HIV 1&2 ANTIBODY (EXTERNAL RESULT) Routine 01/30/2021 7:01 PM CDT from Last 3 Months or Most Recently Relevant to Health Maintenance Results * (ABNORMAL) Comprehensive metabolic panel (08/23/2021 6:09 AM SPAGHETTI MACHINE OPERATOR) Sodium 140 133 - 144 mmol/L 08/23/2021 6:59 AM SPAGHETTI MACHINE OPERATOR [facility] Potassium 4.6 3.4 - 5.3 mmol/L 08/23/2021 6:59 AM SPAGHETTI MACHINE OPERATOR [facility] Chloride 111(H) 94 - 109 mmol/L 08/23/2021 6:59 AM SPAGHETTI MACHINE OPERATOR [facility] Carbon Dioxide (CO2) 25 20 - 32 mmol/L 08/23/2021 6:59 AM SPAGHETTI MACHINE OPERATOR [facility] Anion Gap 4 3 - 14 mmol/L 08/23/2021 6:59 AM [facility] Urea Nitrogen 12 7 - 30 mg/dL 08/23/2021 6:59 AM [facility] Creatinine 0.77 0.52 - 1.04 mg/dL 08/23/2021 6:59 AM [facility] Calcium 8.3(L) 8.5 - 10.1 mg/dL 08/23/2021 6:59 AM [facility] Glucose 84 70 - 99 mg/dL 08/23/2021 6:59 AM [facility] Alkaline Phosphatase 88 40 - 150 U/L 08/23/2021 6:59 AM [facility] AST 21 0 - 45 U/L 08/23/2021 6:59 AM [facility] ALT 15 0 - 50 U/L 08/23/2021 6:59 AM [facility] Protein Total 6.0(L) 6.8 - 8.8 g/dL 08/23/2021 6:59 AM [facility] Albumin 2.2(L) 3.4 - 5.0 g/dL 08/23/2021 6:59 AM [facility] Bilirubin Total 0.2 0.2 - 1.3 mg/dL 08/23/2021 6:59 AM [facility] GFR Estimate >90 >60 mL/min/1.7 3m2 08/23/2021 6:59 AM [facility] Comment:Effective July 022020 eGFRcr in adults is calculated using the 2020 CKD-EPI creatinine equation which includes age and gender (Chastity et al., NEJM, DOI: 10.1056/ISAGga1018325) Blood STRUCTURE OF RIGHT HAND / Unknown Venipuncture / Unknown 08/23/2021 6:09 AM SPAGHETTI MACHINE OPERATOR 08/23/2021 6:25 AM SPAGHETTI MACHINE OPERATOR us Alexandria Orr MD LAB - BLOOD ORDERABLES Fi nal Result LABORATORY [facility] [address] Lab (1st floor, no room number) [place] [address], [facility] [phone] * HIV-1 Antibody (External Result) (01/30/2021 7:01 PM CDT) HIV 1&2 Antibody (External) Negative Nonreactive [facility] 01/30/2021 7:01 PM CDT us Adore Nagy MD LAB - HIM EXTERNAL RESUL T Final Result [facility] [address] [place] [address], [facility] [phone] from Last 3 Months or Most Recently Relevant to Health Maintenance Insurance MEDICA [place] [address] Advance Directives For more information, please contact: [phone] * Full Code (Latest Code Status on File) Date Activated Date Inactivated Comments 08/24/2021 8:04 AM 08/26/2021 12:36 PM All basic a nd advanced life-sustaining interventions are performed as appropriate Question Answer Comments Code status determined by: Discussion with patie nt/ legal decision maker Care Teams Jewelry Salesperson Relationship Specialty Start Date End Date No Ref-Primary, Physician PCP - General 08/21/21
--- NOTE | 2024-06-04 10:15 | CRLHL7_ITS ---
For Patients: As a result of the Century Cures Act, medical imaging exams and procedure reports are released immediately into your electronic medical record. You may view this report before your referring provider. If you have questions, please contact your health care provider. HISTORY: Advanced maternal age. Gestational diabetes mellitus. Marginal cord insertion. COMPARISON: Ob ultrasound from 05/08/2024. TECHNIQUE: Ultrasound examination of the is performed with transabdominal technique. FINDINGS: A single intrauterine gestation is seen in cephalic presentation with regular cardiac activity at 141 beats per minute. The placenta is anterior and is free of the cervical os. The placental grade is 1 and the amniotic fluid volume is normal. Single deepest vertical pocket: Normal at 3.1 cm. BPD: 8.7 cm 35 weeks 0 days HC: 32.6 cm 37 weeks 0 days AC: 34.7 cm 38 weeks 4 days. Ninety-third percentile. FL: 7.2 cm 36 weeks 5 days The estimated age by ultrasound is 36 weeks 6 days, with an estimated date of delivery of 06/26/2024. This correlates well with the clinical age of 37 weeks 1 day and the previous ultrasound. The ultrasound ratios are normal. The estimated weight of 3200 grams is at the 68th percentile based on the clinical dates. Biophysical profile score is normal 8/8 with no points off. IMPRESSION: 1. Single intrauterine gestation in cephalic presentation with regular cardiac activity. 2. Estimated gestational age is 36 weeks 6 days. 3. There has been appropriate interval growth. 4. Estimated weight of 3200 grams is at the 68th percentile based on the clinical dates. 5. Biophysical profile score is normal 8/8 with no points off. Dictated by Ashish Self MD @ 06/04/2024 11:23:24 PM (Electronically Signed)
== END 2024-06-04 10:08 | disposition home or self-care (01) ==
LOC: US 10:09
PROVIDERS: Visit Provider Advanced Practice Midwife
DX: O09.523 Supervision of elderly multigravida, third trimester (principal); O24.410 Gestational diabetes mellitus in pregnancy, diet controlled; O43.193 Other malformation of placenta, third trimester; Z3A.36 36 weeks gestation of pregnancy
CPT/HCPCS: 76816; 76819

== ENCOUNTER 2024-06-20 09:06 | Inpatient (IN) | payer SELFPAY ==
[2024-06-20] VITALS (26 sets, daily range): BP systolic 110–143; BP diastolic 74–96; PULSE 73–113; RESP 16–18; TEMP 36.6–36.9; O2SAT 97–99; BMI 37.3
--- OUTSIDE RECORDS SUMMARY | 2024-06-20 08:01 | XMS_ITS | Clinical Summary ---
Author Organization [facility] Address [address] [address] Care Team Providers Care Explosive Ordnance Specialist Name Role Phone Needs Pcp, Assignment Primary Care Provider [phone] Source Comments You are receiving this document as you are listed as the primary care provider,follow-up provider, or the patient has been referred to you for consultation.This is in compliance with the Medicare and[facility] EHR Incentive Program,which states Providers who transition their patient to another setting of careor provider of care or refers their patient to another provider of care shouldprovide summary care record for each transition of care or referral. [facility] Allergies No known active allergies Medications Medication [...] on patient's age to complete this topic Infant RSV Aged Out No longer eligi ble [...] Negative (Non Reactive) 01/30/2021 4:28 PM CDT [facility] Comment:HIV-1 p24 Antigen an d HIV-1/HIV-2 Antibody not detected Blood Venipuncture / Unknown 01/30/2021 11:42 AM CDT 01/30/2021 11:42 AM CDT Priti Arzola APRN, CNM LAB_1 Performing Organization Address [facility] de Phone Number [facility] [address] * HEPATITIS C ANTIBODY, WITH REFLEX (01/30/2021 11:42 AM CDT) Hepatitis C Antibody Negative (Non Reactive) Negative (Non Reactive) 01/30/2021 4:28 PM CDT [facility] Comment:Antibodies to HCV no t detected. Does not exclude the possiblity of exposure to HCV. Blood Venipuncture / Unknown 01/30/2021 11:42 AM CDT 01/30/2021 11:42 AM CDT Priti Arzola APRN, CNM LAB_1 Performing Organization Address [facility] de Phone Number [facility] [employer] [address] from Last 3 Months or Most Recently Relevant to Health Maintenance Care Teams Explosive Ordnance Specialist Relationship Specialty Start Date End Date Needs Pcp, [place] [address] PCP - General 07/27/21
--- OUTSIDE RECORDS SUMMARY | 2024-06-20 08:01 | XMS_ITS | Encounter Summary ---
Author Organization [facility] Address [address] [place] [id number] Care Team Providers Care Rn Heart Name Role Phone No Ref-Primary, Physician Primary Care Provider Encounter Details Date Type Department Care Team (Late st Contact Info) Description 08/18/2021 Orders Only [facility] Laboratory [address] [place] [id number] Adore Nagy MD [address] [place] [id number] Pre-operative laboratory examination (Primary Dx) Social History Tobacco Use Types Packs/Day Years Used Date Smoking Tobacco: Never Smokeless Tobacco: Never Alcohol Use Standard Drinks/Week Comments Not Currently 0 (1 standard drink = 0.6 oz pur e alcohol) Comments Yes Sex and Gender Information Value Date Recorded Sex Assigned at Not on file Legal Sex Female 9:33 AM SENIOR ENVIRONMENTAL PRACTICE LEADER Gender Identity Not on file Sexual Orientation Not on file COVID-19 Exposure Response Date Recorded In the last month, have you been in contact with someone who was confirmed or suspected to have Coronavirus / COVID-19? No / Unsure 08/20/2021 9:02 AM SENIOR ENVIRONMENTAL PRACTICE LEADER documented as of this encounter Plan of Treatment Not on file documented as of this encounter Results * Treponema Abs w Reflex to RPR and Titer (08/20/2021 9:19 AM SENIOR ENVIRONMENTAL PRACTICE LEADER) Treponema Antibody Total Nonreactive Nonreactive 08/20/2021 2:36 PM SENIOR ENVIRONMENTAL PRACTICE LEADER [facility]/EN DO Blood STRUCTURE OF RIGHT UPPER LIMB / Unknown Venipuncture / Unknown 08/20/2021 9:19 AM SENIOR ENVIRONMENTAL PRACTICE LEADER 08/20/2021 9:20 AM SENIOR ENVIRONMENTAL PRACTICE LEADER Adore Nagy MD LAB - BLOOD ORDERABLES F inal Result [facility]/ENDO [facility]/Prot/Endo [address] [facility] [address], Room [address] [place] [address], [facility] [phone] * Hemoglobin (08/20/2021 9:19 AM SENIOR ENVIRONMENTAL PRACTICE LEADER) Hemoglobin 12.4 11.7 - 15.7 g/dL 08/20/2021 9:30 AM SENIOR ENVIRONMENTAL PRACTICE LEADER LABORATORY Blood STRUCTURE OF RIGHT UPPER LIMB / Unknown Venipuncture / Unknown 08/20/2021 9:19 AM SENIOR ENVIRONMENTAL PRACTICE LEADER 08/20/2021 9:22 AM SENIOR ENVIRONMENTAL PRACTICE LEADER Adore Nagy MD LAB - BLOOD ORDERABLES F inal Result LABORATORY [facility] [address] Lab (1st floor, no room number) [place] [address], [place] [phone] documented in this encounter Visit Diagnoses Diagnosis Pre-operative laboratory examination- Primary Pre-procedural laboratory examination documented in this encounter Care Teams Rn Heart Relationship Specialty Start Date End Date No Ref-Primary, Physician PCP - General 08/21/21 documented as of this encounter
--- OUTSIDE RECORDS SUMMARY | 2024-06-20 08:01 | XMS_ITS | Clinical Summary ---
Author Organization [facility] Address [address] [place] [address] Care Team Providers Care Sandwich Wrapper Name Role Phone No Ref-Primary, Physician Primary [...] drink = 0.6 oz pur e alcohol) [place] Depression Scale Answer Date Recorded [place] Depression Score 8 08/24/2021 Last EPDS Self Harm Result Not on file 08/24 Adolescent Education Answer Date Record ed Getting School Help Needed Not on file 04/23 Comments No Sex and Gender Information Value Date Recorded Sex Assigned at Not on file Legal Sex Female 9:33 AM GEAR ROOM KEEPER Gender Identity Not on file Sexual Orientation Not on file Last Filed Vital Signs Vital Sign Reading Time Taken Comments Blood Pressure 148/91 08/26/2021 9:00 AM GEAR ROOM KEEPER Pulse 100 08/26/2021 5:49 AM GEAR ROOM KEEPER Temperature 37.2 C (99 F) 08/26/2021 1:22 AM GEAR ROOM KEEPER Respiratory Rate 18 08/26/2021 5:49 AM GEAR ROOM KEEPER Oxygen Saturation 98% 08/22/2021 3:11 PM GEAR ROOM KEEPER Inhaled Oxygen Concentration - - Weight 90.3 kg (199 lb) 08/24/2021 6:40 AM GEAR ROOM KEEPER Height - - Body Mass Index - [...] COMPREHENSIVE METABOLIC PANEL Routine 08/23/2021 6:09 AM GEAR ROOM KEEPER HIV 1&2 ANTIBODY (EXTERNAL RESULT) Routine 01/30/2021 7:01 PM CDT from Last 3 Months or Most Recently Relevant to Health Maintenance Results * (ABNORMAL) Comprehensive metabolic panel (08/23/2021 6:09 AM GEAR ROOM KEEPER) Sodium 140 133 - 144 mmol/L 08/23/2021 6:59 AM [facility] Potassium 4.6 3.4 - 5.3 mmol/L 08/23/2021 6:59 AM [facility] Chloride 111(H) 94 - 109 mmol/L 08/23/2021 6:59 AM [facility] Carbon Dioxide (CO2) 25 20 - 32 mmol/L 08/23/2021 6:59 AM [facility] Anion Gap 4 3 - 14 mmol/L 08/23/2021 6:59 AM [facility] Urea Nitrogen 12 7 - 30 mg/dL 08/23/2021 6:59 AM [facility] Creatinine 0.77 0.52 - 1.04 mg/dL 08/23/2021 6:59 AM [facility] Calcium 8.3(L) 8.5 - 10.1 mg/dL 08/23/2021 6:59 AM [facility] Glucose 84 70 - 99 mg/dL 08/23/2021 6:59 AM [facility] Alkaline Phosphatase 88 40 - 150 U/L 08/23/2021 6:59 AM [facility] AST 21 0 - 45 U/L 08/23/2021 6:59 AM [facility] ALT 15 0 - 50 U/L 08/23/2021 6:59 AM [facility] Protein Total 6.0(L) 6.8 - 8.8 g/dL 08/23/2021 6:59 AM GEAR ROOM KEEPER LABORATORY Albumin 2.2(L) 3.4 - 5.0 g/dL 08/23/2021 6:59 AM GEAR ROOM KEEPER LABORATORY Bilirubin Total 0.2 0.2 - 1.3 mg/dL 08/23/2021 6:59 AM GEAR ROOM KEEPER LABORATORY GFR Estimate >90 >60 mL/min/1.7 3m2 08/23/2021 6:59 AM GEAR ROOM KEEPER LABORATORY Comment:Effective July 022020 eGFRcr in adults is calculated using the 2020 CKD-EPI creatinine equation which includes age and gender (Chastity et al., NEJ, DOI: 10.1056/ZIFSqf1314455) Blood STRUCTURE OF RIGHT HAND / Unknown Venipuncture / Unknown 08/23/2021 6:09 AM GEAR ROOM KEEPER 08/23/2021 6:25 AM GEAR ROOM KEEPER us Alexandria Orr MD LAB - BLOOD ORDERABLES Fi nal Result LABORATORY [facility] Acute [facility] Lab [address] [facility] Lab (1st floor, no room number) [place] [address], [facility] [phone] * HIV-1 Antibody (External Result) (01/30/2021 7:01 PM CDT) HIV 1&2 Antibody (External) Negative Nonreactive [facility] 01/30/2021 7:01 PM CDT us Adore Nagy MD LAB - HIM EXTERNAL RESUL T Final Result [facility] [address] [facility] [address], [facility] [phone] from Last 3 Months or Most Recently Relevant [place] [address] MEDICA NON-FV ACO NON IFB Advance Directives For more information, please contact: [phone] * Full Code (Latest Code Status on File) Date Activated Date Inactivated Comments 08/24/2021 8:04 AM 08/26/2021 12:36 PM All basic a nd advanced life-sustaining interventions are performed as appropriate Question Answer Comments Code status determined by: Discussion with patie nt/ legal decision maker Care Teams Sandwich Wrapper Relationship Specialty Start Date End Date No Ref-Primary, Physician PCP - General 08/21/21
--- OUTSIDE RECORDS SUMMARY | 2024-06-20 08:01 | XMS_ITS | Referral Summary ---
Author Organization [facility] Address [address] [place] [address] Care Team Providers Care Fish Hatchery Worker Name Role Phone No Ref-Primary, Physician Primary [...] drink = 0.6 oz pur e alcohol) [place] Depression Scale Answer Date Recorded [place] Depression Score 8 08/24/2021 Last EPDS Self Harm Result Not on file 08/24 Adolescent Education Answer Date Record ed Getting School Help Needed Not on file 04/23 Comments No Sex and Gender Information Value Date Recorded Sex Assigned at Not on file Legal Sex Female 9:33 AM CAGE/VAULT SUPERVISOR Gender Identity Not on file Sexual Orientation Not on file Last Filed Vital Signs Vital Sign Reading Time Taken Comments Blood Pressure 148/91 08/26/2021 9:00 AM CAGE/VAULT SUPERVISOR Pulse 100 08/26/2021 5:49 AM CAGE/VAULT SUPERVISOR Temperature 37.2 C (99 F) 08/26/2021 1:22 AM CAGE/VAULT SUPERVISOR Respiratory Rate 18 08/26/2021 5:49 AM CAGE/VAULT SUPERVISOR Oxygen Saturation 98% 08/22/2021 3:11 PM CAGE/VAULT SUPERVISOR Inhaled Oxygen Concentration - - Weight 90.3 kg (199 lb) 08/24/2021 6:40 AM CAGE/VAULT SUPERVISOR Height - - Body Mass Index - - Plan of Treatment Not on file Procedures Procedure Name Priority Date/Time Associated Diagnosis Comments COMPREHENSIVE METABOLIC PANEL Routine 08/23/2021 6:09 AM CAGE/VAULT SUPERVISOR HIV 1&2 ANTIBODY (EXTERNAL RESULT) Routine 01/30/2021 7:01 PM CDT from Last 3 Months or Most Recently Relevant to Health Maintenance Results * (ABNORMAL) Comprehensive metabolic panel (08/23/2021 6:09 AM CAGE/VAULT SUPERVISOR) Sodium 140 133 - 144 mmol/L 08/23/2021 6:59 AM CAGE/VAULT SUPERVISOR [facility] Potassium 4.6 3.4 - 5.3 mmol/L 08/23/2021 6:59 AM CAGE/VAULT SUPERVISOR [facility] Chloride 111(H) 94 - 109 mmol/L 08/23/2021 6:59 AM CAGE/VAULT SUPERVISOR [facility] Carbon Dioxide (CO2) 25 20 - 32 mmol/L 08/23/2021 6:59 AM [facility] Anion Gap 4 3 - 14 mmol/L 08/23/2021 6:59 AM [facility] Urea Nitrogen 12 7 - 30 mg/dL 08/23/2021 6:59 AM [facility] Creatinine 0.77 0.52 - 1.04 mg/dL 08/23/2021 6:59 AM [facility] Calcium 8.3(L) 8.5 - 10.1 mg/dL 08/23/2021 6:59 AM [facility] Glucose 84 70 - 99 mg/dL 08/23/2021 6:59 AM [facility] Alkaline Phosphatase 88 40 - 150 U/L 08/23/2021 6:59 AM [facility] AST 21 0 - 45 U/L 08/23/2021 6:59 AM [facility] ALT 15 0 - 50 U/L 08/23/2021 6:59 AM [facility] Protein Total 6.0(L) 6.8 - 8.8 g/dL 08/23/2021 6:59 AM [facility] Albumin 2.2(L) 3.4 - 5.0 g/dL 08/23/2021 6:59 AM [facility] Bilirubin Total 0.2 0.2 - 1.3 mg/dL 08/23/2021 6:59 AM [facility] GFR Estimate >90 >60 mL/min/1.7 3m2 08/23/2021 6:59 AM [facility] Comment:Effective July 022020 eGFRcr in adults is calculated using the 2020 CKD-EPI creatinine equation which includes age and gender (Chastity et al., NEJM, DOI: 10.1056/ZAQNmj6202354) Blood STRUCTURE OF RIGHT HAND / Unknown Venipuncture / Unknown 08/23/2021 6:09 AM CAGE/VAULT SUPERVISOR 08/23/2021 6:25 AM CAGE/VAULT SUPERVISOR us Alexandria Orr MD LAB - BLOOD ORDERABLES Fi nal Result LABORATORY [facility] Lab [address] Lab (1st floor, no room number) [place] [address], [facility] [phone] * HIV-1 Antibody (External Result) (01/30/2021 7:01 PM CDT) HIV 1&2 Antibody (External) Negative Nonreactive [facility] 01/30/2021 7:01 PM CDT us Aodre Nagy MD LAB - HIM EXTERNAL RESUL T Final Result [facility] [address] [place] [address], [facility] [phone] from Last 3 Months or Most Recently Relevant to Health Maintenance Insurance MEDICA NON-FV ACO NON IFB Advance Directives For more information, please contact: [phone] * Full Code (Latest Code Status on File) Date Activated Date Inactivated Comments 08/24/2021 8:04 AM 08/26/2021 12:36 PM All basic a nd advanced life-sustaining interventions are performed as appropriate Question Answer Comments Code status determined by: Discussion with patie nt/ legal decision maker Care Teams Fish Hatchery Worker Relationship Specialty Start Date End Date No Ref-Primary, Physician PCP - General 08/21/21
[2024-06-20 08:55] LABS: Amnisure Rom* POSITIVE
--- NOTE | 2024-06-20 09:28 | P.LDBA_ITS ---
Subjective History of Present Illness Narrative: Barbara is a 44 yo at 39 3/7 weeks gestation being admitted to Labor and Delivery for PROM of clear fluid that occurred at 0615. She reports when she woke up, she went to the bathroom and returned to her bed. She then felt a gush of fluid but was confused as she had just went to the bathroom. Once she was up she again felt a gush of fluid and called. At that time she was not feeling any discomfort or contractions. She has had cramping on and off for the last few days. Since she arrived to the center she has noted more cramping. She continues to leak clear, pink tinged fluid. She denies any bleeding and reports she is feeling movement. Her full history and physical was dictated by JERALD Layton on 06/04/2024. Please see this for details. [] Specific Issues/Plans Partner: Joseph, Son-Santos MCGILLI: They are paying for care out of pocket H&P done by Alba Davis CNM on 06/04/24 #GDM-GCT 181. Nutrition consult and supplies ordered 04/06 Growth every 4 weeks starting at 32 weeks Recommended delivery at 39-40 6/7: considering but declines at 39 0/7 # history of , breech presentation in the setting of pre E with severe features Desires -consult: 04/24/24 w/ Dr. Orr. Consent form given. Predicted rate of success: 45%. No contraindications to /TOLAC. consent signing: Consult done but consent returned Growth ultrasound at 36 weeks: done #Marginal Cord Insertion Growth every 4 weeks starting 28-32 weeks-scheduled Consider NST/BPP weekly starting at 36 weeks #AMA, 44 at time of delivery Genetic screening: declined Level 2 ultrasound and consult with MFM:-declined Growth ultrasound between 32 and 36 weeks: normal Weekly NST starting at 36 weeks Recommend delivery at 39-40 weeks # history of pre E with the severe features by blood pressure criteria Aspirin 81 mg-taking Baseline pre E labs: All normal 24 urine for protein: <5 # obesity, BMI 34.6 Hemoglobin A1c: 6.0= pre diabetes 20wk GTT: 133 # very mild thrombocytosis at 1st OB, 444. Normal at 33wks. Resolved. # history of hepatitis B at 13 or 14 and did receive treatment. Hep B serologies are consistent with resolved infection Plan: ( testing worksheet sent) Growth u/s at 33 wks: EFW 47%, BPP 6/8, NST reactive NSTs starting at 36 wks: ordered Growth u/s w/BPP at 37 wks: EFW 67.8% TDAP: declined. OB - Problem Based A/P Additional Plan (1) PROM (premature rupture of membranes): Status: Acute (2) Encounter for trial of labor: Status: Acute (3) History of : Problem details: Previous at 37 weeks: PROM, pre E with severe features, breech presentation Status: Acute (4) GDM (gestational diabetes mellitus): Status: Acute (5) Marginal insertion of umbilical cord affecting management of mother: Status: Acute (6) AMA (advanced maternal age) multigravida 35+: Status: Acute (7) History of severe pre-eclampsia: Status: Acute Plan ASSESSMENT:? 44 yo at 39.3 weeks gestation? complicated by:?GDMA1 (prediabetic), hx of c/s for breech, marginal cord insertion, AMA, hx of pre-e with SF, obesity with prepregnancy BMI 34.6 Labor type: Spontaneous, Early labor? Category 1 FHR pattern.?? Labor complicated by: TOLAC? GBS negative ? PLAN:? 1. Routine intrapartum cares as ordered. Discussed options of augmentation with pitocin. At this time, she is sweta and starting to feel them. We discussed immediate initiation of pitocin vs expectant management for 6-12 hours. At this time, plan to continue with expectant management. 2. Monitoring per policy, continuous with TOLAC 3. Planning unmedicated . Candidate for analgesia of choice, if desired. 4. Patient encouraged to reposition and ambulate to promote physiologic labor and .? 5. , Dr. Tran, notified that patient is a TOLAC and updated on patient status. Consent is signed and in chart. OR team is aware of patient status per RN. They will be notified when she is in active labor. IV to be placed with lab draw. 6. GDM. Manage BG per protocol. She had a snack this morning but did not check her fasting. Will plan to check BG after 1st meal. Reviewed plan for testing with her. 7. Anticipate ? Delivery/Labor/Induction Plan Plan: expectant management OB Result Labs Blood Type: O (+) positive GBS Status: negative OB Exam Physical Exam Vital signs: Temp Pulse Resp BP Pulse Ox 97.9 F 102 H 18 119/83 98 06/20/24 08:21 06/20/24 08:21 06/20/24 08:21 06/20/24 08:21 06/20/24 08:22 Narrative: Vitals Reviewed Constitutional:? Alert and oriented x3 HEENT:? Normocephalic, atraumatic Neck:? Supple Lungs:? Clear to auscultation bilaterally Heart:? Regular rate and rhythm, no murmur, rub or gallop Abdomen:? Soft, nontender, and gravid. Vertex by Sammy's, confirmed with cervical exam. Extremities:? No edema or erythema Cervix: 1 cm/60%/-3 station/vertex NST: 135 bpm/moderate variability/15x15 accelerations/no decelerations/contra ctions every 2-4 palpating mild Detailed Labor and Delivery Exam Patient Gravid: Yes
[2024-06-20 10:25] LABS: Basophils Percent Auto 0.2 % (0.0-3.0); Eosinophils Percent Auto 0.5 % (0.0-7.0); Hematocrit 39.6 % (33.0-51.0); Hemoglobin* 13.1 gm/dL (12.0-16.0); Immature Granulocytes Pct Auto 0.3 %; Lymphocytes Percent Auto 15.8 % (20-44); Mean Corpuscular HGB Conc 33 gm/dL (32-36); Mean Corpuscular Hemoglobin 25 pg (26-34); Mean Corpuscular Volume 74 fL (80-100); Monocytes Percent Auto 6.2 % (0.0-11.0); Platelet Count* 231 K/uL (140-440); RDW Coefficient of Variation % 15.2 % (11.5-15.5); Red Blood Count 5.33 m/uL (4.00-5.20)
[2024-06-20 10:29] LABS: Slide Review Reflex No
[2024-06-20 13:17] LABS: Aspartate Amino Transferase* 25 U/L (12-35); Creatinine* 0.5 mg/dL (0.5-1.5); Estimated Glomerular Filt Rate 120 ml/min
[2024-06-20 13:18] LABS: Alanine Aminotransferase* 19 U/L (4-35); Blood Urea Nitrogen* 12 mg/dL (5-24)
[2024-06-20 16:26] LABS: Appearance Urine Clear (Clear); Bilirubin Urine Negative (Negative); Blood Urine 3+ (Negative); Color Urine Yellow (Yellow); Glucose Urine Negative (Negative); Ketones Urine 3+ (Negative); Leukocyte Esterase Urine Negative (Negative); Nitrite Urine Negative (Negative); Protein Urine 1+ (Negative); Specific Gravity Urine 1.025 (1.000-1.030); Urobilinogen Urine 0.2 (0.2-1.0)
[2024-06-20 16:48] LABS: Bacteria Urine Few; WBC Urine 0-2 (0-5)
--- NOTE | 2024-06-20 19:16 | P.OBPN_ITS ---
Subjective Date Seen: 06/20/24 Narrative: Barbara is a at 39 3/7 weeks gestation that presented this morning with ROM at 0615 with clear, pink tinged fluid. She started having regular contractions after arrival and was expectantly managed throughout the day. She is coping well with contractions. She is supported by her in labor. Patient is afebrile and continues to leak clear, pink tinged fluid. Objective Exam: Objective: Constitutional: Alert and oriented x3, mild/moderate distress, coping well Vital signs stable, see nurse documentation Abdomen: gravid, contractions palpate mild/moderate with contractions and soft between Cervix: posterior, -2/vertex; patient did not tolerate exam well but minimal change from previous exam NST: 135 bpm/moderate variability/15x15 accelerations/no decelerations/contractions every 2-8 minutes Vital Signs: Last Vital Signs Temp 98.3 F 06/20/24 19:08 Pulse 90 06/20/24 19:04 Resp 18 06/20/24 19:08 BP 133/86 06/20/24 19:04 Pulse Ox 98 06/20/24 08:22 Plan Plan: 44 yo at 39.3 weeks gestation? complicated by:?GDMA1 (prediabetic), hx of c/s for breech, marginal cord insertion, AMA, hx of pre-e with SF, obesity with prepregnancy BMI 34.6 Labor type: Spontaneous, Early labor? Category 1 FHR pattern.?? Labor complicated by: TOLAC? GBS negative ? PLAN:? 1. Routine intrapartum cares as ordered. Recommended augmentation with IV pitocin. Reviewed recommendation and alternative of waiting until midnight to s tart pitocin but strongly encouraged starting it now. Reviewed how it is used, risks/benefits, and goals. After discussing with her partner they have agreed to proceed with pitocin. 2. Monitoring per policy, continuous with TOLAC 3. Planning unmedicated . Candidate for analgesia of choice, if desired. 4. Patient encouraged to reposition and ambulate to promote physiologic labor and .? 5. , Dr. Tran, aware that patient is a TOLAC and updated on patient status. Consent is signed and in chart. OR team is aware of patient status per RN. They will be notified when she is in active labor. 6. GDM. Manage BG per protocol. 7. Anticipate ?
[2024-06-20] MEDS: OXYTOCIN 30 unit/500 ML in NS 30 UNIT/500 ML BAG IVPB (19:51)
[2024-06-20] MEDS: LACTATED RINGERS 500 ML 500 ML 30 ML IV (19:53)
[2024-06-21] VITALS (122 sets, daily range): BP systolic 90–160; BP diastolic 51–103; PULSE 72–134; RESP 16–20; TEMP 36.6–39.1; O2SAT 84–100
[2024-06-21] MEDS: LACTATED RINGERS 1000 ML 1,000 ML IV (02:35)
[2024-06-21] MEDS: LIDOCAINE 2% (PF) 5 ML VIAL EPIDURAL (02:40)
[2024-06-21] MEDS: ROPIVACAINE 0.2% 100 ml 100 ML 10 MG EPIDURAL ×2 (02:40→11:27)
--- NOTE | 2024-06-21 02:45 | PM.ANBPRC ---
[facility] Medical History (Updated 06/20/24 @ 09:42 by Kenia Ferro CNM) Prediabetes in mother during ?O99.810 - Abnormal glucose complicating (ICD-10) History of severe pre-eclampsia ?Z87.59 - Personal history of other complications of , childbirth and the puerperium (ICD-10) Surgical History (Updated 06/20/24 @ 09:42 by Kenia Ferro CNM) History of ?Z98.891 - History of uterine scar from previous surgery (ICD-10) Social History Narrative: Occupation: Massage therapist. Marital status: . Tenriism/cultural needs: no. Chemical or radiation exposure: no. Pre- tobacco use: no. Pre- alcohol use: no. Current tobacco use: no. Current alcohol use: no. Recreational drug use: no. Dietary restrictions: no. Blood transfusion acceptable in an emergency: yes. PSYCHOSOCIAL HISTORY: History of depression or currently depressed: no. Current or past physical, emotional, or sexual mistreatment: no. Problems that will make it hard to make it to appointments: no. What is your current living situation?: I presently have a place to live Problems where you live: no known problems In the past 12 months, utilities in danger of being shut off: no In the past 12 mos, have been you worried that your food would run out before you had money to buy more?: never true In the past 12 mos, the food you bought just didn't last and you didn't have money to buy more?: never true Smoking Status: Never smoker How often does anyone, including family, friends and others, physically hurt you: never How often does anyone, including family, friends and others, insult or talk down to you: never How often does anyone, including family, friends and others, threaten you with harm: never How often does anyone, including family, friends and others, scream or curse at you: never Meds Home Medications and Allergies Home Medications ?Medication ?Instructions ?Recorded ?Confirmed ?Type docosahexaenoic acid 200 mg 200 mg PO DAILY 11/22/23 06/20/24 History capsule ( DHA) aspirin 81 mg chewable tablet 81 mg PO QDAY 12/20/23 06/20/24 History doxylamine succinate 25 mg tablet 25 mg PO QHS PRN 12/20/23 06/20/24 History (Unisom (doxylamine)) Allergies Allergy/AdvReac Type Severity Reaction Status Date / Time No Known Drug Allergies Allergy Verified 06/18/24 10:40 Results Labs Labs: Laboratory Results - last 24 hr 06/20/24 06/20/24 06/20/24 10:18 10:29 16:21 WBC 13.20 H RBC 5.33 H Hgb 13.1 Hct 39.6 MCV 74 L MCH 25 L MCHC 33 RDW Coeff of Obey 15.2 Plt Count 231 Neut % (Auto) 77.0 H Lymph % (Auto) 15.8 L [place] % (Auto) 6.2 Eos % (Auto) 0.5 Baso % (Auto) 0.2 Neut # (Auto) 10.20 H Lymph # (Auto) 2.10 [place] # (Auto) 0.80 Eos # (Auto) 0.10 Baso # (Auto) 0.00 Abs Immat Gran (auto) 0.00 Imm/Tot Granulo (auto) 0.3 BUN 12 Creatinine 0.5 Estimated Creat Clear 110.60 Estimated GFR 120 AST 25 ALT 19 Urine Color Yellow Urine Appearance Clear Urine pH 6.0 Ur Specific [place] 1.025 Urine Protein 1+ A Urine Glucose (UA) Negative Urine Ketones 3+ A Urine Blood 3+ A Urine Nitrite Negative Urine Bilirubin Negative Urine Urobilinogen 0.2 Ur Leukocyte Esterase Negative Urine RBC 10-25 A Urine WBC 0-2 Ur Squamous Epith Cells None Urine Bacteria Few A Membrane Rupture Blood Type O Positive Antibody Screen NEGATIVE 06/20/24 Unknown WBC RBC Hgb Hct MCV MCH MCHC RDW Coeff of Obey Plt Count Neut % (Auto) Lymph % (Auto) [place] % (Auto) Eos % (Auto) Baso % (Auto) Neut # (Auto) Lymph # (Auto) [place] # (Auto) Eos # (Auto) Baso # (Auto) Abs Immat Gran (auto) Imm/Tot Granulo (auto) BUN Creatinine Estimated Creat Clear Estimated GFR AST ALT Urine Color Urine Appearance Urine pH Ur Specific [place] Urine Protein Urine Glucose (UA) Urine Ketones Urine Blood Urine Nitrite Urine Bilirubin Urine Urobilinogen Ur Leukocyte Esterase Urine RBC Urine WBC Ur Squamous Epith Cells Urine Bacteria Membrane Rupture POSITIVE Blood Type Antibody Screen Vital Signs Vital Signs: Last Vital Signs Temp 98.0 F 06/21/24 00:34 Pulse 97 06/21/24 02:43 Resp 18 06/21/24 00:34 BP 118/60 06/21/24 02:43 Pulse Ox 99 06/21/24 02:44 Weight: 89.499 kg Height: 154.94 cm Anesthesia Procedures Epidural Insertion Patient Location: OB Start Time: 02:15 Stop Time: 03:50 Start Date: 06/21/24 Stop Date: 06/21/24 Reason for Block: primary anesthetic Patient Position: sitting Performed By: Benedict Edwards Preanesthetic Checklist: IV checked, risks and benefits discussed, surgical consent, monitors and equipment checked, pre-op evaluation, timeout performed and anesthesia consent Prep: chlorhexidine gluconate Monitoring: blood pressure monitoring, threat monitoring analyst, continuous pulse oximetry and heart rate Approach: midline Vertebral Space: lumbar (1-5) Needle Type: Tuohy needle Injection Technique: continuous catheter (catheter) Needle gauge: 17 Needle Length (cm): 10 cm Needle Insertion Depth (cm): 5 Catheter Gauge: 19 Catheter Type: multi-orifice Catheter at skin depth (cm): 10 Test Dose Result: negative and lidocaine 1.5% with epinephrine 1 to 200,000
[2024-06-21] MEDS: PHENYLEPHRINE 100 MCG/ML SYRINGE IVP ×4 (02:58→05:07)
[2024-06-21] MEDS: LACTATED RINGERS 1000 ML 1,000 ML 925 ML IV (03:51)
--- NOTE | 2024-06-21 06:56 | PM.OBPNL ---
Subjective Date Seen: 06/21/24 Narrative: Barbara is a 44 yo at 39 4/7 weeks gestation that presented yesterday with PROM. Her labor slowly progressed throughout the day yesterday and the decision was made to augment with Pitocin last evening. Within a few hours of pitocin she became very uncomfortable but was coping well with position changes. At about 3 am, she requested an epidural. She is now comfortable with an epidural. Objective Exam: Objective: Constitutional: Alert and oriented x3, mild distress, coping well Vital signs stable, see nurse documentation Abdomen: gravid, contractions palpate mild with contractions and soft between Cervix: 5 cm/90%/-1 station/vertex NST: 130 bpm/moderate variability/15x15 accelerations/early decelerations/contractions every 3 Vital Signs: Last Vital Signs Temp 98.0 F 06/21/24 06:41 Pulse 96 06/21/24 06:55 Resp 16 06/21/24 06:41 BP 128/75 06/21/24 06:55 Pulse Ox 99 06/21/24 02:49 Plan Plan: 44 yo at 39.4 weeks gestation? complicated by:?GDMA1 (prediabetic), hx of c/s for breech, marginal cord insertion, AMA, hx of pre-e with SF, obesity with prepregnancy BMI 34.6 Labor type: Spontaneous, Active labor? Category 1 FHR pattern.?? Labor complicated by: TOLAC, GHTN, ROM >24 hours GBS negative ? PLAN:? 1. Routine intrapartum cares as ordered. Recommended augmentation with IV Pitocin. Reviewed recommendation and alternative of waiting until midnight to start pitocin but strongly encouraged starting it now. Reviewed how it is used, risks/benefits, and goals. After discussing with her partner they have agreed to proceed with pitocin. 2. Monitoring per policy, continuous with TOLAC 3. Planning unmedicated . Candidate for analgesia of choice, if desired. 4. Patient encouraged to reposition and ambulate to promote physiologic labor and .? 5. , Dr. Tran, aware that patient is a TOLAC and updated on patient status. Consent is signed and in chart. OR team is aware of patient status per RN. They were notified that patient is in active labor. 6. GDMA1. Manage BG per protocol. 7. GHTN diagnosed by BP elevated x 2 greater than 4 hours. Continue to monitor BP. They have been normotensive since epidural placement. Initial labs were WNL, p/c ratio was not done due to ROM. Will collect now that she has an epidural and catheter in place. 8. Anticipate ?
[2024-06-21 08:05] LABS: Creatinine Urine 48.7 mg/dL; Protein Creatinine Ratio Urine 0.51 (0-0.19); Total Protein Urine 25 mg/dL
--- NOTE | 2024-06-21 10:16 | PM.OBCN1 ---
OB - CN: HPI Date of Consult Time Seen by Provider: 09:50 Date Seen: 06/21/24 Consult date: 07/03/24 Requesting Physician: Justus Vargas CNM Primary Care Provider: Not a Local Provider Consult Narrative Reason for consult: nonreassuring FHTs Narrative: The patient is a 44 year old G 2 P 1 at 39 4/7 weeks gestation that was admitted to the Center on 06/20/24 for VTOLAC after PROM. Labor progression normal, at around 9am NST showing recurrent variable some late decelerations and consult made by JERALD to consider vacuum assisted vaginal delivery. History History 2 Elective abortions Para 2 Spontaneous abortions Hx # Term Pregnancies Ectopic pregnancies Hx # Pregnancies Multiple births Number of Living Children 1 Past Pregnancies Del. Date GA/Weeks Outcome Route wt Inf Gender Labor Lgth Anesthesia Location Provider Compli 08/21/21 38 live - full term low transverse 4.111 kg Male scheduled spinal [facility] preeclampsia Labs Blood type: O (+) positive GBS status: negative OB Labs: Lab Assessment Start: 06/20/24 08:57 Freq: ONCE Status: Complete Protocol: PC.OBGBS Activity Type Activity Date Activity User E-sign Co-sign Detail Recorded Client Recorded Date Recorded By Document 06/20/24 09:31 [facility] [id number] 06/20/24 09:31 [facility] 06/20/24 09:31 Lab Assessment GBS Status negative GBS Additional Criteria None No Treatment Needed OK Are Labs Available Yes Maternal Blood Type O Maternal RH Factor Positive Evaluate Maternal Rubella Immune Status Immune Hepatitis B Surface Antigen Negative Maternal HIV Status Negative Maternal Syphillis (RPR) Status Negative [facility] Medical History (Updated 06/26/24 @ 00:01 by Background Daemon) Preeclampsia ?O14.90 - Unspecified pre-eclampsia, unspecified trimester (ICD-10) Prediabetes in mother during ?O99.810 - Abnormal glucose complicating (ICD-10) History of severe pre-eclampsia ?Z87.59 - Personal history of other complications of , childbirth and the puerperium (ICD-10) Surgical History (Updated 06/26/24 @ 00:01 by Background Daemon) History of ?Z98.891 - History of uterine scar from previous surgery (ICD-10) Social History Narrative: Occupation: Massage therapist. Marital status: . Buddhist/cultural needs: no. Chemical or radiation exposure: no. Pre- tobacco use: no. Pre- alcohol use: no. Current tobacco use: no. Current alcohol use: no. Recreational drug use: no. Dietary restrictions: no. Blood transfusion acceptable in an emergency: yes. PSYCHOSOCIAL HISTORY: History of depression or currently depressed: no. Current or past physical, emotional, or sexual mistreatment: no. Problems that will make it hard to make it to appointments: no. What is your current living situation?: I presently have a place to live Problems where you live: no known problems In the past 12 months, utilities in danger of being shut off: no In the past 12 mos, have been you worried that your food would run out before you had money to buy more?: never true In the past 12 mos, the food you bought just didn't last and you didn't have money to buy more?: never true Smoking Status: Never smoker How often does anyone, including family, friends and others, physically hurt you: never How often does anyone, including family, friends and others, insult or talk down to you: never How often does anyone, including family, friends and others, threaten you with harm: never How often does anyone, including family, friends and others, scream or curse at you: never Meds Home Medications and Allergies Home Medications ?Medication ?Instructions ?Recorded ?Confirmed ?Type docosahexaenoic acid 200 mg 200 mg PO DAILY 11/22/23 06/20/24 History capsule ( DHA) Allergies Allergy/AdvReac Type Severity Reaction Status Date / Time No Known Drug Allergies Allergy Verified 06/18/24 10:40 OB - H&P: Exam Physical Exam: Vital signs: Temp Pulse Resp BP Pulse Ox 98.7 F 95 18 132/56 L 100 06/21/24 08:39 06/21/24 10:13 06/21/24 08:39 06/21/24 10:13 06/21/24 09:50 Narrative: Cervical check: complete dilation and effacement, position suspected to be LOT/LOP. Confirmed by bedside US. station w/o pushing +1, with contractions w/o pushing +2. Minimal caput. OB - Results Labs Labs: Short CBC 06/20/24 Range/Units 10:18 WBC 13.20 H (4.50-11.00) K/uL Hgb 13.1 (12.0-16.0) gm/dL Hct 39.6 (33.0-51.0) % Plt Count 231 (140-440) K/uL BMP 06/20/24 10:29 BUN 12 Creatinine 0.5 Liver Function 06/20/24 Range/Units 10:29 AST 25 (12-35) U/L ALT 19 (4-35) U/L Urine 06/20/24 Range/Units 16:21 Urine Color Yellow (Yellow) Urine Appearance Clear (Clear) Urine pH 6.0 (5.0-8.5) Ur Specific [place] 1.025 (1.000-1.030) Urine Protein 1+ A (Negative) Urine Glucose (UA) Negative (Negative) OB - CN: A/P Assessment and Plan (1) PROM (premature rupture of membranes): Status: Acute (2) Encounter for trial of labor: Status: Resolved (3) History of : Problem details: Previous at 37 weeks: PROM, pre E with severe features, breech presentation Status: Acute (4) GDM (gestational diabetes mellitus): Status: Resolved (5) Marginal insertion of umbilical cord affecting management of mother: Status: Resolved (6) AMA (advanced maternal age) multigravida 35+: Status: Acute (7) History of severe pre-eclampsia: Status: Acute Plan Discussed possible alternatives for management: 1. attempt at manual rotation, continued pushing. 2. Proceeding with a delivery. 3. Vacuum placement assisted vaginal delivery if continued progressive descent. Discussed with patient and , that at this time NST showing concerns for episodes of oxygenation, discussed usual interventions to improve oxygenation such as position changes, increase IVFs, d/c Oxytocin. In her case all have been done. Discussed that we can tolerate these changes for a short amount of time, but should not tolerate for prolonged period of time as it can increase risk for hypoxic brain damage. Discussed interventions to expedite delivery in this case. At this point with station, deeper in the vaginal canal risks for baby are comparable between an attempt at manual rotation, assisted vaginal delivery or proceeding with urgent delivery. Patient and discussed and would like to attempt a manual rotation. My right had was ntirely introduced vaginally, I was able to gently apply pressure to lift the vertex gently and apply counterclockwise rotation. rotation noted. With the next contraction, patient was asked to push and descent noted to +3, +4 station. NST with improved variability and accelerations. At this moment it is reasonable for patient to continue to push as she has good pushing efforts, heart rate has recovered and progressive descent has been noted.
[2024-06-21] MEDS: LACTATED RINGERS 1000 ML 1,000 ML 125 ML IV (10:47)
[2024-06-21] MEDS: miSOPROStoL 800 MCG/4 TABLET PR (12:25)
--- NOTE | 2024-06-21 12:40 | W.PM.OBVAGDE ---
OB Procedure Vag Delivery Mother Details Mother Details: The patient is a 44 year-old, 2, Para 1, admitted on 06/20/24 at 39.4 Days gestation. : 2 Para: 2 Weeks Gestation: 39.4 Admission Date: 06/20/24 Additional Details Amniotic Membrane Status: SROM Amniotic Membrane Rupture Date: 06/20/24 Amniotic Membrane Rupture Time: 06:15 Amniotic Membrane Fluid Description: Clear Analgesia/Anesthesia Type: Epidural Waterbirth: No Pitcoin: Yes (augmentation and AMTSL) Intrapartal Events: Distress (resolved with manual rotation of fetus by the OB), ROM >18 Hours and Prolonged 2nd Stage >2.5 Hrs Delivery augmentation: pitocin Labor Onset: 04:50 Complete: 09:00 Pushin:02 Heart: heart tones during second stage were category 2.Shortly after beginning pushing variable decelerations were noted. At 0939 a prolonged deceleration was noted lasting about 3 minutes down to the 70's. It improved after repositioning into hands and knees. Because of this early in pushing the prison warden OB was called to urgently consult for possibility of vacuum, delivery or continuing with second stage. At the time of her arrival the FHR tracing had improved. A conversation was had with the patient and her partner about options. After a SVE it was determined that the fetus was in an OP position not not a candidate for vacuum assistance. They were given the option for manual rotation, continuing as is or delivery. Questions were answered. See Dr. Suero's note for further details. After the successful rotation the FHR tracing was much improved and pushing was resumed. After pushing resumed there was a category 2 tracing with intermittent variable and an occasional late deceleration noted with good return to baseline and moderate variability. Delivery Details Delivery Date: 06/21/24 Delivery Time: 12:10 Route of delivery: Infant Gender: Female Viability: Alive; Heart Rate Present Position at Delivery: OA Delivery Details: Patient was admitted for PROM and progressed with Pitocin augmentation after prolonged ROM. SROM noted at 0615 with clear fluid. Patient was complete at 0900 and pushing at 0902. of a viable female at 1210 in right tilt. Vertex delivered OA. Nuchal cord x1 was noted but too tight to reduce so summersaulted and reduced after delivery. No shoulder. Body delivered easily and without incident. Infant passed to mothers abdomen with a vigorous cry. Cord was clamped and cut at > 5 minutes. APGARS were 8 at one minute and 9 at five minutes respectively. Mouth was bulb suctioned. Intact placenta with a 3 vessel cord delivered spontaneously at 1217. Fundus firm. 1st identified and was hemostatic and well approximated so not repaired. QBL 700 mL. Mother and baby stable; mother plans to breastfeed. Infant weight 7lb 5oz. No hgb due to OOP payments 1 Minute Interval Total Score: 8 5 Minute Interval Total Score: 9 Additional Details Shoulder Dystocia: No Placenta Delivery Time: 12:17 Placental Delivery Description: Spontaneous Procedure Done: Global Blood Loss: 700 Laceration: Vaginal - 1st Degree (bilaterally less than 1cm long. Hemostatic and well approximated, not repaired. ) Episiotomy Description: None Blood Loss Measurement Type: QBL [place] Used: No Sponge/Need Count Correct: Yes Cord Vessel Description: 3 Vessels, Nuchal Cord and Delivered through Event Summary Status: Mother and infant were stable after delivery. Disposition: floor
[2024-06-21] MEDS: ACETAMINOPHEN 500 MG TABLET 1000 MG PO (14:50)
[2024-06-21 15:03] LABS: Basophils Percent Auto 0.1 % (0.0-3.0); Hematocrit 36.8 % (33.0-51.0); Immature Granulocytes Pct Auto 0.9 %; Lymphocytes Percent Auto 7.5 % (20-44); Mean Corpuscular HGB Conc 33 gm/dL (32-36); Mean Corpuscular Hemoglobin 24 pg (26-34); Mean Corpuscular Volume 75 fL (80-100); Monocytes Percent Auto 4.9 % (0.0-11.0); Neutrophils Percent Auto 86.6 % (42.0-72.0); Platelet Count* 248 K/uL (140-440); Red Blood Count 4.92 m/uL (4.00-5.20); White Blood Count* 19.05 K/uL (4.50-11.00)
[2024-06-21 15:08] LABS: Slide Review Reflex No
[2024-06-21] MEDS: AMPICILLIN 2 GM in 0.9 % SODIUM CHLORIDE Mini-bag 100 ML IVPB ×2 (15:22→21:25)
[2024-06-21] MEDS: LACTATED RINGERS 500 ML 500 ML 125 ML IV (15:28)
[2024-06-21] MEDS: GENTAMICIN 330 MG in 0.9 % SODIUM CHLORIDE 100 ml 100 ML 108.25 MG IVPB (16:07)
[2024-06-21] MEDS: IBUPROFEN 600 MG TABLET PO (16:33)
--- NOTE | 2024-06-21 16:43 | P.OBPN_ITS ---
OB - PN:Subj Subjective Time Seen by Provider: 16:43 Date Seen: 06/21/24 Patient comments OB post-: pain well controlled, tolerating diet and flatus present status: and doing well Narrative: RN called shortly after delivery for elevated blood pressures. None sustained in the severe range. Will monitor closely. RN messaged at 1440 about elevated temperature of 101.3. Consulted with CGM for antibiotic recommendations and ampicillin and gentamicin were started per protocol as well as a CBC collected and PO Tylenol was given. About 1.5 hours after Tylenol was given and antibiotics were initiated a repeat temperature was 102.4. CGM was again consulted and Flagyl was due to her raising temperature. At that time her blood pressure also decreased to 108/71 from 141/66 and her pulse increased to 108-120. The patient looks good, not diaphoretic and easily aroused from sleep. She states that she feels ok right now. Reviewed recommendations for antibiotics, Tylenol, ibuprofen, and frequent VS monitoring. Encouraged her to report how she is feeling to the RN and reviewed signs of deterioration. Will plan for scheduled Tylenol and ibuprofen. A 500mL IV fluid bolus was initiated and will use ice packs to help decrease temperature. There was discussion of starting Nifedipine for her blood pressures but seeing as they have decreased will hold this for now. OB - PN: Obj Exam Physical Exam: Vital signs: Temp Pulse Resp BP Pulse Ox O2 Del Method 102.4 F H 108 H 18 108/71 95 Room Air 06/21/24 16:11 06/21/24 16:40 06/21/24 16:40 06/21/24 16:40 06/21/24 16:40 06/21/24 16:23 OB - PN: Obj Data Labs Labs: Laboratory Results - last 24 hr 06/20/24 06/21/24 06/21/24 16: 07:37 14:52 WBC 19.05 H RBC 4.92 Hgb 12.0 Hct 36.8 MCV 75 L MCH 24 L MCHC 33 RDW Coeff of [place] 15.0 Plt Count 248 Neut % (Auto) 86.6 H Lymph % (Auto) 7.[address] [place] % (Auto) 4.9 Eos % (Auto) 0.0 Baso % (Auto) 0.1 Neut # (Auto) 16.50 H Lymph # (Auto) 1.40 [place] # (Auto) 0.90 Eos # (Auto) 0.00 Baso # (Auto) 0.00 Abs Immat Gran (auto) 0.20 Imm/Tot Granulo (auto) 0.9 Urine Color Yellow Urine Appearance Clear Urine pH 6.0 Ur Specific [place] 1.025 Urine Protein 1+ A Urine Glucose (UA) Negative Urine Ketones 3+ A Urine Blood 3+ A Urine Nitrite Negative Urine Bilirubin Negative Urine Urobilinogen 0.2 Ur Leukocyte Esterase Negative Urine RBC 10-25 A Urine WBC 0-2 Ur Squamous Epith Cells None Urine Bacteria Few A Urine Creatinine 48.7 Protein/Creatinin Ratio 0.51 H Urine Total Protein 25 OB - PN: A/P Delivery Assessment and Plan (1) History of : Problem details: Previous at 37 weeks: PROM, pre E with severe features, breech presentation Status: Acute (2) GDM (gestational diabetes mellitus): Status: Acute (3) Marginal insertion of umbilical cord affecting management of mother: Status: Acute (4) AMA (advanced maternal age) multigravida 35+: Status: Acute (5) Chorioamnionitis, delivered, current hospitalization: Status: Acute (6) Preeclampsia: Problem details: without severe features Status: Acute (7) Prolonged rupture of membranes, greater than 24 hours, delivered: Status: Acute Plan day: 0 Comments: Assessment: Preeclampsia without severe features Chorioamnionitis after prolonger ROM , delivered Plan: -500mL IV fluid bolus -Ampicillin, gentamicin, and Flagyl antibiotics -Scheduled Tylenol and ibuprofen for temperature management -Ice packs PRN for temperature management -Vital signs [id number] and PRN until stable
[2024-06-21] MEDS: LACTATED RINGERS 500 ML 500 ML IV (16:46)
[2024-06-21] MEDS: metroNIDAZOLE 500 MG/100 ML PIGGYBACK 100 MG IVPB (17:44)
[2024-06-22] VITALS (7 sets, daily range): BP systolic 106–130; BP diastolic 69–87; PULSE 69–90; RESP 16–22; TEMP 36.4–36.8; O2SAT 97–98
[2024-06-22] MEDS: metroNIDAZOLE 500 MG/100 ML PIGGYBACK 100 MG IVPB ×3 (02:00→17:46)
[2024-06-22] MEDS: AMPICILLIN 2 GM in 0.9 % SODIUM CHLORIDE Mini-bag 100 ML IVPB ×3 (04:32→17:05)
[2024-06-22] MEDS: IBUPROFEN 600 MG TABLET PO ×2 (06:59→13:17)
--- NOTE | 2024-06-22 07:49 | PM.OBPNVD1 ---
OB - PN:Subj Subjective Date Seen: 06/22/24 Narrative: ?The patient feels well.? The pain is well controlled with current medications.? She has no new complaints.? Urinary output is adequate and she is voiding without difficulty.? Has a good appetite, is tolerating a general diet, is passing flatus, and has had a bowel movement.? Has scant amount of rubra lochia.? She is ambulating well. She is and reports it is going well.? OB - PN: Obj Exam Physical Exam: Vital signs: Temp Pulse Resp BP Pulse Ox O2 Del Method 97.6 F 82 16 122/81 98 Room Air 06/22/24 07:21 06/22/24 07:21 06/22/24 07:21 06/22/24 07:21 06/22/24 07:21 06/22/24 07:21 Narrative: GENERAL APPEARANCE:? normal affect, alert, no distress MOOD:? appropriate CHEST:? clear to auscultation HEART:? regular rate and rhythm ABDOMEN:? soft, non-tender the uterine fundus is At Umbilicus, Midline and is appropriate for the stage of recovery. EXTREMITIES:? normal and mild edema Fasting glucose this morning was normal. OB - PN: Obj Data Labs Labs: Laboratory Results - last 24 hr 06/21/24 06/21/24 07:37 14:52 WBC 19.05 H RBC 4.92 Hgb 12.0 Hct 36.8 MCV 75 L MCH 24 L MCHC 33 RDW Coeff of [place] 15.0 Plt Count 248 Neut % (Auto) 86.6 H Lymph % (Auto) 7.[address] [place] % (Auto) 4.9 Eos % (Auto) 0.0 Baso % (Auto) 0.1 Neut # (Auto) 16.50 H Lymph # (Auto) 1.40 [place] # (Auto) 0.90 Eos # (Auto) 0.00 Baso # (Auto) 0.00 Abs Immat Gran (auto) 0.20 Imm/Tot Granulo (auto) 0.9 Urine Creatinine 48.7 Protein/Creatinin Ratio 0.51 H Urine Total Protein 25 OB - PN: A/P Delivery Assessment and Plan (1) History of : Problem details: Previous at 37 weeks: PROM, pre E with severe features, breech presentation Status: Acute (2) GDM (gestational diabetes mellitus): Status: Acute (3) AMA (advanced maternal age) multigravida 35+: Status: Acute (4) Chorioamnionitis, delivered, current hospitalization: Status: Acute (5) Preeclampsia: Problem details: without severe features Status: Acute Plan Comments: PP day #1 Preeclampsia without severe features, currently normotensive Chorioamnionitis after prolonger ROM , delivered Routine care with further care related to chorioamnionitis May see as desired Anticipate discharge 06/23/2024
--- NOTE | 2024-06-22 12:21 | PM.ANPOST ---
Post Anesthesia Note Post Anesthesia Note Patient seen: Inpatient Respiratory Status: adequate Cardiovascular Status: adequate Mental Status: baseline Pain: adequate Temp: baseline Anesthetic awareness: N/A Complications: none Follow care: none
--- NOTE | 2024-06-22 13:27 | P.OBPN_ITS ---
OB - PN:Subj Subjective Date Seen: 06/22/24 Interval history: RN approached me regarding antibiotics. She inquired if we wanted to do one more dose of gentamycin since patient took a bit longer to become afebrile. One more dose at 1600 would provide coverage for a full 24 hours of being afebrile. Ok'd to give one more dose. OB - PN: Obj Exam Physical Exam: Vital signs: Temp Pulse Resp BP Pulse Ox O2 Del Method 97.9 F 74 16 115/69 97 Room Air 06/22/24 11:01 06/22/24 11:01 06/22/24 11:01 06/22/24 11:01 06/22/24 11:01 06/22/24 11:01 OB - PN: Obj Data Labs Labs: Laboratory Results - last 24 hr 06/21/24 14:52 WBC 19.05 H RBC 4.92 Hgb 12.0 Hct 36.8 MCV 75 L MCH 24 L MCHC 33 RDW Coeff of [place] 15.0 Plt Count 248 Neut % (Auto) 86.6 H Lymph % (Auto) 7.5 L [place] % (Auto) 4.9 Eos % (Auto) 0.0 Baso % (Auto) 0.1 Neut # (Auto) 16.50 H Lymph # (Auto) 1.40 [place] # (Auto) 0.90 Eos # (Auto) 0.00 Baso # (Auto) 0.00 Abs Immat Gran (auto) 0.20 Imm/Tot Granulo (auto) 0.9 OB - PN: A/P Delivery Assessment and Plan (1) History of : Problem details: Previous at 37 weeks: PROM, pre E with severe features, breech presentation Status: Acute (2) GDM (gestational diabetes mellitus): Status: Acute (3) AMA (advanced maternal age) multigravida 35+: Status: Acute (4) Chorioamnionitis, delivered, current hospitalization: Status: Acute (5) Preeclampsia: Problem details: without severe features Status: Acute
[2024-06-22 14:14] LABS: Rapid Plasma Reagin (RPR) Non Reactive (Non Reactive)
[2024-06-22] MEDS: GENTAMICIN 330 MG in 0.9 % SODIUM CHLORIDE 100 ml 100 ML 108.25 MG IVPB (15:55)
[2024-06-23 00:15] VITALS: BP 102/67; PULSE 94; RESP 16; TEMP 36.8
[2024-06-23 04:28] VITALS: BP 127/82; PULSE 82; RESP 16; TEMP 36.8; O2SAT 96
[2024-06-23] MEDS: LANOLIN CREAM 1 APPLIC TOPICAL (04:48)
--- NOTE | 2024-06-23 08:22 | P.DS_ITS ---
DS: Providers Provider Date Seen: 06/23/24 Date of admission: 06/20/24 09:06 Primary care physician: Not a Local Provider Admitting Clinician: Kenia Ferro CNM Consults: 06/21/24 10:00 Consult to Physician [CONS] Routine Comment: Consulting Provider: Tahira Flower Has provider been notified: Yes 06/21/24 16:42 Consult to Physician [CONS] Routine Comment: Consulting Provider: Tahira Flower Has provider been notified: Yes Attending Physician on discharge: Yeimy Davis CNM Date of Discharge: 06/23/24 DS: Diagnosis Discharge Diagnosis (1) Chorioamnionitis, delivered, current hospitalization: Status: Acute (2) GDM (gestational diabetes mellitus): Status: Acute (3) care and examination immediately after delivery: Status: Acute (4) Lactating mother: Status: Acute (5) Gestational hypertension: Status: Acute Exam Narrative: Exam Narrative: VSS, afebrile GENERAL APPEARANCE: ?normal affect, alert, no distress MOOD: ?appropriate HEENT: normocephalic, neck supple, full ROM CHEST: ?Symmetrical chest wall movement. ?Normal respiratory effort. ?Clear to auscultation HEART: ?regular rate and rhythm ABDOMEN: ?soft, non-tender. Uterine fundus is firm, at Umbilicus, Midline and is appropriate for the stage of recovery. ?Bowel sounds present. PERINEUM: ?mild edema of the perineum, there is a 1st degree laceration that is healing well. EXTREMITIES: ?normal and trace edema Const: Vital Signs, click to edit/add: Vital Signs - 24 hr 06/22/24 11:01 06/22/24 16:01 06/22/24 19:44 Temperature 97.9 F 97.8 F 97.9 F Pulse Rate [Left P ulse Oximeter] 74 82 69 Respiratory Rate 16 16 16 Blood Pressure [Le ft Arm] 115/69 106/72 126/84 Pulse Oximetry 97 97 Oxygen Delivery Me thod Room Air Room Air 06/23/24 00:15 06/23/24 04:28 Temperature 98.3 F 98.3 F Pulse Rate [Left P ulse Oximeter] 94 82 Respiratory Rate 16 16 Blood Pressure [Le ft Arm] 102/67 127/82 Pulse Oximetry 96 Oxygen Delivery Me thod Room Air Documenting provider has reviewed patient's vital signs: yes OB - DS: Summary Hospital Course Hospital Course: Barbara is a 44 y.o. who was admitted to [facility] for SROM. ?She had an uncomplicated NVD with development of Chorioamnionitis in the immediate period treated with triple antibiotics for 24 hours.?The patient feels well. ?The pain is well controlled with current medications. ?She has no new complaints. ?She is breast feeding and reports things are going well.? the patient has done well.? Vitals have been stable.? She has remained afebrile.? Has a good appetite, is tolerating a general diet. ?She is voiding without difficulty.? She is passing gas and has had a bowel movement.? She is ambulating and denies any dizziness.? Has Small amount of rubra lochia. ?She is planning condoms for prevention. Discussed 2 hour GTT to be done at one of her visits, was not done as inpatient. Peripartum Data Infant delivery method: Vaginal Laceration description: Perineal - 1st Degree complications: other (chrorioamnionitis) Gender: Female Discharge Plan: Home Status at Discharge Functional status at discharge: independent ambulation Overall status at discharge: patient is progressing back to baseline Time Spent with Patient Time attestation: Total time spent providing and/or coordinating discharge services: Time spent: Less than 30 minutes Discharge Plan Discharge Disposition: Home, Self-Care Date of Admission: 06/20/24 09:06 Attending Provider on Discharge: Yeimy Davis Consulting Providers: Tahira Flower Primary Care Provider: Provider,Not a Local Condition: Stable Anticipated Discharge Date/Time: 06/23/24 Discharge Medications: New acetaminophen 500 mg Tablet 1,000 mg PO Q6H PRNQty: 0 0RF docusate sodium 100 mg Capsule 100 mg PO DAILY Qty: 90 0RF ibuprofen 600 mg Tablet 600 mg PO Q6H PRNQty: 60 0RF Continued DHA 200 mg capsule 200 mg PO DAILY Discontinued aspirin 81 mg tablet,chewable 81 mg PO QDAY Unisom (doxylamine) 25 mg tablet 25 mg PO QHS PRN (DME) Test Strips Misc See Rx Instructions .MEDSUPPLY Qty: 100 3RF Rx Instructions: Test blood sugar 4 times daily. (DME) lancets Misc See Rx Instructions .MEDSUPPLY Qty: 100 3RF Rx Instructions: Test blood sugar 4 times daily. (DME) Blood Glucose Meter Misc See Rx Instructions .MEDSUPPLY Qty: 1 0RF Rx Instructions: As directed Discharge Orders: Discharge Order (Routine); Ordered 06/23/24 Ordered By: Yeimy Davis Patient Education: OB Over the Counter Medication Information, OB Vaginal/Breast Feeding Additional Instructions: Discharge instructions were reviewed with the patient including signs and symptoms of infection and home going medications Nothing vaginally for 6 weeks: no tampons or intercourse Off Work or School for 6 weeks Symptoms to report to doctor: * Bleeding that saturates more than one pad per hour * Passing clots larger than the size of a golf ball * Pain not relieved by prescribed medication * Fever above 100.4 degrees Fahrenheit * A foul vaginal odor * Difficulty in emotions, mood, and functions * Thoughts of hurting yourself and/or * Painful, reddened area in your breast * Any drainage, redness, or tenderness in your IV/epidural site * Severe headache that doesn't improve after taking medications * Changes in vision, including temporary loss of vision, blurred vision, and/or light sensitivity * Upper abdominal pain (usually under ribs on the right side) * Decrease in urination or painful, frequent urinating * Chest pain * Shortness of breath * Tenderness or pain with redness and/swelling in the calf(s) of your leg [facility] for [facility] BP check?[06/25/24] Call with BP greater than or equal to 150/100 2-week visit: discuss feeding concerns, review control options and screen for anxiety/depression. 6-week visit for an annual exam. consultation services are available to all mothers and babies for the first year after delivery.? To make an appointment, please call [phone]. Activity Level: Activity as Tolerated Discharge Diet: Regular Follow Up Appointments: [facility] [Provider Group] Forms: [employer] Info Instructions
[2024-06-23 08:27] VITALS: BP 113/73; PULSE 74; RESP 16; TEMP 36.9; O2SAT 97
== END 2024-06-23 11:24 | disposition home or self-care (01) | DRG 805 ==
LOC: OB OUT 09:07 → OB 09:07
PROVIDERS: Advanced Practice Midwife; Admitting Provider Advanced Practice Midwife; Visit Provider Advanced Practice Midwife
DX: O42.02 Full-term premature rupture of membranes, onset of labor within 24 hours of rupture (principal); O41.1230 Chorioamnionitis, third trimester, not applicable or unspecified; Z37.0 Single live birth; O76 Abnormality in fetal heart rate and rhythm complicating labor and delivery; O64.0XX0 Obstructed labor due to incomplete rotation of fetal head, not applicable or unspecified; O34.219 Maternal care for unspecified type scar from previous cesarean delivery; O13.4 Gestational [pregnancy-induced] hypertension without significant proteinuria, complicating childbirth; O24.429 Gestational diabetes mellitus in childbirth, unspecified control; O69.89X0 Labor and delivery complicated by other cord complications, not applicable or unspecified; O99.214 Obesity complicating childbirth; E66.9 Obesity, unspecified; Z3A.39 39 weeks gestation of pregnancy; O14.05 Mild to moderate pre-eclampsia, complicating the puerperium; O70.0 First degree perineal laceration during delivery; O63.1 Prolonged second stage (of labor)
CPT/HCPCS: 01967; 36415; 76815; 81001; 81003; 82565; 82570; 82962; 84112; 84156; 84450; 84460; 84520; 85025; 86592; 86850; 86900; 86901; 87086; 88307; A9270; J0290; J1580; J1836; J2371; J2795; J7120

== ENCOUNTER 2024-08-03 08:30 | Outpatient (CLI) | payer OTHER, SELFPAY ==
[2024-08-05 04:40] LABS: HPV Source Cervical; HPV, High Risk by TMA Not Detected
== END 2024-08-03 08:31 | disposition home or self-care (01) ==
PROVIDERS: Advanced Practice Midwife; Visit Provider Advanced Practice Midwife
DX: Z39.2 Encounter for routine postpartum follow-up (principal); Z12.4 Encounter for screening for malignant neoplasm of cervix
CPT/HCPCS: 82947; 82950; 87624; 87625; 88141; 88142